=== PATIENT | female | born 1965 | race Caucasian/White ===

== ENCOUNTER 2017-02-18 19:33 | Inpatient (IN) | payer OTHER ==
[~2017-02-18] VITALS: Ht 157.5 cm; Wt 115.2 kg
--- NOTE | ~2017-02-18 | EKG ---
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: paras : 1965 Requested By: Carolyn Meyers Order Number: [id number] MD: Orlin Zeng Measurements Intervals [place] Rate: 100 P: 37 [place]: 192 QRS: -32 QRSD: 96 T: 134 QT: 374 QTc: 483 Interpretive Statements Sinus tachycardia LVH with secondary repolarization abnormality Anterior Q waves, possibly due to LVH Compared to ECG 02/19/2017 10:56:45 Q waves now present Sinus rhythm no longer present Poor R-wave progression no longer present Electronically Signed On 02-26-2017 22:08:20 CDT by Orlin Zeng [email or web address] <ELECTRONICALLY SIGNED> By: Orlin Zeng MD 02/26/17 2208 0616 0616 Orlin Zeng MD /EPI
--- NOTE | ~2017-02-18 | EKG ---
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: HELEN : 1965 Requested By: Denis Sepulveda Order Number: [id number] MD: Alverto Sparks Measurements Intervals [place] Rate: 76 P: 15 [place]: 200 QRS: -24 QRSD: 100 T: 120 QT: 420 QTc: 473 Interpretive Statements Sinus rhythm LVH with secondary repolarization abnormality nonspecific ST segment abnormalities No previous ECG available for comparison Electronically Signed On 02-19-2017 15:45:04 CDT by Alverto Sparks [email or web address] <ELECTRONICALLY SIGNED> By: Alverto Sparks MD 02/19/17 1545 1939 1939 Alverto Sparks MD /CECILIO
--- NOTE | ~2017-02-18 | 2DMMODE ---
[facility] [address] [place] [address] 2 D/M-MODE ECHOCARDIOGRAM Name: WENDYISIDRA TESS Room #: 212-P ADM IN M.R.#: [id number] Admission: 02/18/17 Attend Phys: Dayton Davis Discharge: Date of : 67 Date of Service: 02/20/17 1538 Report #: [id number] THIS REPORT FOR: //name// APPROVED REPORT Study performed: 02/20/2017 14:27:00 EXAM: Comprehensive 2D, Doppler, and color-flow Echocardiogram Patient Location: Bedside Room #: 212 Status: routine Other Information Study Quality: Good/status post heart cath. Indications Chest pain, elevated troponin. Pre-Op CABG. Hx: CHF, COPD, HTN, HLP, DM 2D Dimensions RVDd: 32.63 mm LVEF(%): 51.60 (>50%) IVSd: 13.98 (7-11mm) LVOT Diam: 22.50 (18-24mm) LVDd: 45.48 mm PWd: 13.34 (7-11mm) Ascending Ao: 35.58 (22-36mm) LVDs: 33.53 (25-40mm) Aortic Root: 37.92 mm Cormier's LVEF: 51.60 % Volumes Left Atrial Volume (Systole) Single Plane 4CH: 59.75 mL Single Plane 2CH: 72.51 mL LA ESV Index: 35.00 mL/m2 Aortic Valve AoV Peak Lauro.: 1.51 m/s AO Peak Gr.: 9.15 mmHg LVOT Max P.11 mmHg LVOT Max V: 1.24 m/s ERICH Vmax: 3.25 cm2 Mitral Valve E/A Ratio: 0.8 MV Decel. Time: 304.50 ms MV E Max Lauro.: 0.81 m/s MV A Lauro.: 1.00 m/s MV PHT: 88.30 ms [facility] [place] [address] 2 D/M-MODE ECHOCARDIOGRAM Name: NGUYENISIDRA AMARILLO Room #: 212-P [facility] IN .R.#: [id number] Admission: 02/18/17 Attend Phys: Dayton Davis Discharge: Date of : 67 Date of Service: 02/20/17 1538 Report #: [id number] IVRT: 110.73 ms Pulmonary Valve PV Peak Lauro.: 1.36 m/s PV Peak Gr.: 7.38 mmHg Pulmonary Vein P Vein S: 0.64 m/s P Vein A: 0.30 m/s P Vein D: 0.41 m/s P Vein A Dur.: 110.7 msec P Vein S/D Ratio: 1.56 Tricuspid Valve TR Peak Lauro.: 3.25 m/s RAP Estimate: 5.00 mmHg TR Peak Gr.: 42.15 mmHg PA Pressure: 47.00 mmHg Left Ventricle The left ventricle is normal size. Moderate concentric left ventricular hypertrophy. Left ventricular systolic function is preserved. LVEF is 55%. Mild diastolic dysfunction is present (impaired relaxation pattern). Right Ventricle The right ventricle is normal size. The right ventricular systolic function is normal. Atria Left atrium is mildly dilated. The right atrium size is normal. Aortic Valve The aortic valve is normal in structure. No aortic regurgitation is present. There is no aortic valvular stenosis. Mitral Valve The mitral valve is normal in structure. Mild to moderate mitral regurgitation. Tricuspid Valve The tricuspid valve is normal in structure. There is mild to moderate tricuspid regurgitation. The right atrial pressure is estimated at 5 mmHg. There is moderate pulmonary hypertension with an estimated PAP of 47mmHg. Pulmonic Valve The pulmonary valve is normal in structure. [place] [address] 2 D/M-MODE ECHOCARDIOGRAM Name: ISIDRA NGUYEN AMARILLO Room #: 212-P ADM IN M.R.#: [id number] Admission: 02/18/17 Attend Phys: Dayton Davis Discharge: Date of : 67 Date of Service: 02/20/17 1538 Report #: [id number] Great Vessels Aortic root is mildly dilated at the level of the sinuses measuring 3.9cm The ascending aorta is normal in size. IVC is normal in size and collapses >50% with inspiration. Pericardium Cannot rule out trivial posterior effusion. <Conclusion> Left ventricular systolic function is preserved. LVEF is 55%. Left atrium is mildly dilated. The aortic valve is normal in structure. The mitral valve is normal in structure. Mild to moderate mitral regurgitation. The tricuspid valve is normal in structure. There is mild to moderate tricuspid regurgitation. The right atrial pressure is estimated at 5 mmHg. There is moderate pulmonary hypertension with an estimated PAP of 47mmHg. The pulmonary valve is normal in structure. Trace pulmonic regurgitation. Aortic root is mildly dilated at the level of the sinuses measuring 3.9cm <ELECTRONICALLY SIGNED> By: Austin Randall MD 02/20/17 1538 1538 1538 Austin Randall MD /INF
--- NOTE | ~2017-02-18 | EKG ---
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: miriam : 1965 Requested By: Nohemy Beck Order Number: [id number] MD: Alverto Sparks Measurements Intervals [place] Rate: 65 P: 23 AK: 204 QRS: -21 QRSD: 109 T: 115 QT: 450 QTc: 468 Interpretive Statements Sinus rhythm Borderline prolonged AK interval Poor R-wave progression LVH with secondary repolarization abnormality No previous ECG available for comparison Electronically Signed On 02-19-2017 15:51:58 CDT by Alverto Sparks [email or web address] <ELECTRONICALLY SIGNED> By: Alverto Sparks MD 02/19/17 1551 1056 1056 MD ZAMZAM Hurley
--- NOTE | ~2017-02-18 | CATHLAB ---
[facility] [address] [place] [address] INVASIVE PROCEDURE REPORT Name: ISIDRA NGUYEN TESS Room #: 212-P ADM IN M.R.#: [id number] Admission: 02/18/17 Attend Phys: Dayton Davis Discharge: Date of : 67 Date of Service: 02/20/17 1348 Report #: [id number] THIS REPORT FOR: //name// APPROVED REPORT Patient Details Patient Status: In-Patient Room #: 201 The patient is a 51 year-old female Event Personnel Alverto Sparks Speech Correction Consultant, Estefania Fuentes RN RN, Kole Javed RN, Trevin Parks Aloi, Christine Monitor, Ruiz Trnih RN Security Assessor Procedures Performed Left Heart Cath w/or w/o Coronaries [id number] [facility] Indication Dyspnea, Unstable angina Risk Factors Hypercholesterolemia, Hypertension, Tobacco History (), Dialysis Procedure Narrative The Right Groin^ was infiltrated with 1% Lidocaine subcutaneous anesthesia. A PINNACLE 4FR Sheath #[id number] sheath was inserted into the RFA^. Coronary angiography was performed using coronary diagnostic catheters. The right coronary system was accessed and visualized with a JR4 catheter. The left coronary system was accessed and visualized with a JL4 catheter. The left ventricle was accessed and visualized with a PIGTAIL catheter. Left ventricular/Aortic Valve gradient assessed via catheter pullback. Left ventriculogram was performed in 30 degree projection. Hemostasis was obtained with manual pressure following sheath removal without any complications. The patient tolerated the procedure well and there were no complications associated with the procedure. There was no hematoma. Intraoperative Conscious Sedation Sedation start time: 12:33 Case end Time: 12:43 Fentanyl 25 mcg Versed 1 mg Fluoro Time: 2.10 minutes [facility] [address] [place] [address] INVASIVE PROCEDURE REPORT Name: ISIDRA NGUYEN BOSQUE Room #: 212-P [facility] IN .R.#: [id number] Admission: 02/18/17 Attend Phys: Dayton Davis Discharge: Date of : 67 Date of Service: 02/20/17 1348 Report #: [id number] Dose: DAP 4716.69 cGycm2 637 mGy Contrast Type and Amount: Visipaque 100 ml Coronary Angiography The patient's coronary anatomy is right dominant. Diagnostic Cath Left Main No flow-limiting lesions LAD Severe stenosis in proximal/mid segment, 80% Diagonal 1 Moderate size caliber vessel with a severe, ostial stenosis of 70%. OM2 Severe occlusion, 70% in proximal segment. Right Coronary Dominant vessel with a severe occlusion in mid segment, 95%. R PDA Patent vessel, no flow-limiting lesions. RPLV Patent vessel, no flow limiting lesions. Left Ventriculography The left ventricle is normal in size with normal contractility. The left ventricular ejection fraction is estimated to be 65-70%. Hemodynamics The aortic pressure is 166/87 mmHg with a mean of 86 mmHg. The left ventricular pressure is 168/18 mmHg with a mean of mmHg. The left ventricular end diastolic pressure is 25 mmHg. Conclusion 1. Severe 3 vessel disease. 2. Normal LV systolic function. 3. Recommend CABG. Recommendations Aggressive Medical Therapy CABG <ELECTRONICALLY SIGNED> By: Alverto Sparks MD 02/20/17 1348 1348 1348 Alverto Sparks MD /INF
--- NOTE | ~2017-02-18 | EKG ---
[address] [address] ELECTROCARDIOGRAM REPORT Name: ISIDRA NGUYEN Room #: 212-P ADM IN M.R.#: [id number] Admission: 02/18/17 Attend Phys: Cecil Marcus MD Discharge: Date of : 67 Report #: [id number] THIS REPORT FOR: //name// [facility] Test Date: 2017-02-23 Test Time: 15:16:24 Pat Name: ISIDRA NGUYEN Department: Room: [facility] Gender: F Food Taster: Dayton HENSON : 1965 Requested By: Carolyn Meyers Order Number: [id number] MD: Orlin Zeng Measurements Intervals [place] Rate: 88 P: 55 NM: 201 QRS: -48 QRSD: 128 T: 112 QT: 438 QTc: 530 Interpretive Statements Sinus rhythm Left bundle branch block Compared to ECG 02/19/2017 10:56:45 Left bundle-branch block now present Poor R-wave progression no longer present Left ventricular hypertrophy no longer present Early repolarization no longer present Electronically Signed On 02-26-2017 22:03:49 CDT by Orlin Zeng [email or web address] <ELECTRONICALLY SIGNED> By: Orlin Zeng MD 02/26/17 2203 1516 1516 Orlin Zeng MD /EPI
--- NOTE | ~2017-02-18 | HC ---
[facility] [place] [address] CONSULTATION Name: ISIDRA NGUYEN Room #: 212-P ADM IN M.R.#: [id number] Admission: 02/18/17 Attend Phys: Cecil Marcus MD Discharge: Date of : 67 Report #: [id number] THIS REPORT FOR: //name// CC: TIM physician/PCP Cecil Marcus DATE OF SERVICE: 02/19/2017 INDICATION: Chest pain. HISTORY OF PRESENT ILLNESS: This is a 51-year-old female presenting with complaints of chest discomfort. She is currently residing at [facility] after experiencing a tibia fracture 1-1/2 weeks ago. She developed midsternal chest discomfort, nonradiating. It was associated with shortness of breath. There were no alleviating or aggravating factors. It seem to resolve within 5 minutes in duration. She denies any history of nausea, fever, cough, diarrhea or congestion. She does have significant CAD risk factors including diabetes mellitus, hypertension, hypercholesterolemia, and tobacco use. PAST MEDICAL HISTORY: As above COPD. History of diabetes mellitus, hypertension, hypercholesterolemia. ALLERGIES: PENICILLIN. MEDICATIONS: Include aspirin 81 mg daily, Lipitor 40 mg daily, Coreg 25 mg twice a day, lisinopril 10 mg daily, Protonix 40 mg daily, Spiriva, DuoNeb inhaler, Glucophage, levothyroxine, Symbicort. SOCIAL HISTORY: Smoking a few cigarettes per week. FAMILY HISTORY: Negative for premature CAD. REVIEW OF SYSTEMS: A full 10-point review of systems performed. Only the pertinent positives and negatives are described in the HPI. PHYSICAL EXAMINATION: VITAL SIGNS: Blood pressure is 120/70, heart rate is 76 beats per minute. GENERAL APPEARANCE: This is an overweight female in no acute respiratory distress. HEAD AND EYES: Normocephalic. Sclerae are anicteric. ENT: Oral mucosa moist. NECK: Supple. LUNGS: Clear to auscultation. No wheezing. CARDIAC: Regular rate and rhythm, S1, S2 positive. ABDOMEN: Soft, nontender. Bowel sounds positive. EXTREMITIES: No cyanosis, no edema. [facility] [address] [place] [address] CONSULTATION Name: ISIDRA NGUYEN TESS Room #: 212-P ADM IN M.R.#: [id number] Admission: 02/18/17 Attend Phys: Cecil Marcus MD Discharge: Date of : 67 Report #: [id number] SKIN: Intact, no bruising. NEUROLOGIC: Alert and oriented x 3 ECG reveals sinus rhythm with LVH, LVH with repolarization abnormality, poor R-wave progression. LABORATORY VALUES: Peak troponin is 0.17. White count is 13.0, hemoglobin is 12.2. Sodium is 140, creatinine is 1.0. ASSESSMENT AND PLAN: 1. Chest pain syndrome, the troponin level is in the indeterminate range. Her symptoms are somewhat atypical. However, she does have significant coronary artery disease risk factors. The plan is to proceed with noninvasive stress testing. 2. Hypertension, continue with medications. 3. Hypercholesterolemia, continue with statin therapy, denies any history of myalgias. 4. Diabetes mellitus, as per PCP. 5. Chronic obstructive pulmonary disease, stable, continue with inhalers. 6. Tobacco use, complete smoking cessation is recommended. <ELECTRONICALLY SIGNED> By: Alverto Sparks MD 02/20/17 0732 1052 1222 Alverto Sparks MD /nt
--- NOTE | ~2017-02-18 | PFR/MVV ---
[facility] [place] [address] PULMONARY FUNCTION MVV/REPORT Name: WENDYISIDRAHOLLI PULIDO Room #: 212-P [facility] IN .R.#: [id number] Admission: 02/18/17 Attend Phys: Cecil Marcus MD Discharge: Date of : 67 Report #: [id number] THIS REPORT FOR: //name// >> SPIROMETRY: (BTPS) Height: 62.0 in cm Weight: 156 lbs kg Exam Date: 02/22/17 PRE-RX POST-RX PRED BEST %PRED BEST %PRED %CHG FVC LITERS . 2.93 . 2.72 . 93 . 2.93 . 100 . 8 FEV1 LITERS . 2.44 . 1.82 . 75 . 2.09 . 86 . 15 FEV1/FVC % . 83 . 67 . 80 . 71 . 86 . 7 YDT46-35% L/Sec . 2.76 . 1.02 . 37 . 1.38 . 50 . 35 PEF L/SEC . 5.70 . 4.29 . 75 . 4.75 . 83 . 11 FEF50/FIF50 UNITLESS . . . . . . MVV L/Min . . . f 1/Min . . . >> LUNG VOLUMES: (BTPS) PRE-RX POST-RX PRED AVG %PRED AVG %PRED %CHG VC Liters . . . . . . TLC Liters . . . . . . RV Liters . . . . . . RV/TLC % . . . . . . FRC PL Liters . . . . . . FRC N2 Liters . . . . . . ERV Liters . . . . . . IC Liters . . . . . . >> DIFFUSION: DLCO ml/Min/mmHg . . . . . . DL Gagan ml/Min/mmHg . . . . . . DLCO/VA ml/Min/mmHg . . . . . . VA Liters . . . . . . COMMENTS: COMMENTS: >> RESISTANCE: [facility] [address] [place] [address] PULMONARY FUNCTION MVV/REPORT Name: ISIDRA NGUYEN GUNNISON Room #: 212-P ADM IN .R.#: [id number] Admission: 02/18/17 Attend Phys: Cecil Marcus MD Discharge: Date of : 67 Report #: [id number] PRE-RX PRED AVG %PRED Raw Total cmH20/L/Sec . . . Raw Insp cmH20/L/Sec . . . Raw Exp cmH20/L/Sec . . . Raw cmH20/L/Sec . . . Gaw L/Sec/cmH20 . . . sRaw cmH20 Sec . . . sGaw l/cmH20 Sec . . . Vtq Liters . . . # = OUTSIDE 95% CONFIDENCE INTERVAL CALIBRATION: PRED: 3.00 ACTUAL: EXP 3.01 INSP 3.02 [facility]06 [facility]-05 N-1804-4 >> INTERPRETATION/IMPRESSION: CC: TIM physician/PCP Cecil Marcus Spirometry suggests mild obstruction with improvement of 15% post bronchodilator. By: Alysa Mendez MD /nt
--- NOTE | ~2017-02-18 | HC ---
[facility] [place] [address] CONSULTATION Name: ISIDRA NGUYEN Room #: 150-8 ADM IN M.R.#: [id number] Admission: 02/18/17 Attend Phys: Cecil Marcus MD Discharge: Date of : 67 Report #: [id number] THIS REPORT FOR: //name// CC: TIM physician/PCP Cecil Marcus DATE OF SERVICE: 02/21/2017 HISTORY OF PRESENT ILLNESS: The patient is a 51-year-old female who has a history of diabetes mellitus, hypertension, hyperlipidemia, CHF and COPD, was admitted through the Emergency Department with chest pain and shortness of air. She has been evaluated and is noted to have significant coronary artery disease. The plan is for coronary artery bypass grafting on 02/23/2017. The patient's recent history includes a left tibial fracture 1.5 weeks prior to her admission. She was placed in a calf and is nonweightbearing on that left lower extremity. We are seeing her in rehabilitation medicine consultation. PAST MEDICAL HISTORY: Is as noted above. She has a history of ND x 4, hypertension, CVA, diabetes mellitus, CHF, hyperlipidemia, COPD. ALLERGIES: PENICILLIN CAUSING HIVES. FAMILY HISTORY: Heart disease in her father, apparently had a CABG at age 31. HABITS: Tobacco abuse, current same day smoker. No history of alcohol abuse. SOCIAL HISTORY: Lives in mobile home with her fiance. There are 5 steps to get in. She indicated that they are in the process of building a ramp. He works during the day. Her hope is to return directly home to her mobile home and utilize a wheelchair, which she could get around in the living room. She could utilize a bedside commode. Of note is the fact that the patient was staying at [facility] since the tibial fracture. REVIEW OF SYSTEMS: Did not offer any current complaints of chest pain, shortness of breath or abdominal discomfort. PHYSICAL EXAMINATION: GENERAL: A 51-year-old white female in no obvious distress. VITAL SIGNS: Last recorded temperature is 98.1, pulse 63, respirations 18, blood pressure 98/54. The patient is alert and oriented. HEENT: Appeared to be benign. NEUROLOGIC: Cranial nerves are grossly intact. Facies are symmetric. She has functional range of motion to both upper extremities. Strength is grade 4-4+/5. DTRs are trace to 1. LOWER EXTREMITIES: She has the left leg, which is in a short leg cast. She can wiggle the toes. [facility] [address] [place] [address] CONSULTATION Name: ISIDRA NGUYEN Room #: 150-8 ADM IN [facility].#: [id number] Admission: 02/18/17 Attend Phys: Cecil Marcus MD Discharge: Date of : 67 Report #: [id number] EXTREMITIES: She has functional range of motion of the right lower extremity without focal weakness. Bed mobility is standby assistance. Transfers are currently standby assistance. She is noted to be min assist with toilet transfers. IMPRESSION: A 51-year-old white female with the following problem list: 1. Severe coronary artery disease, scheduled for coronary artery bypass grafting on 02/23/2017. 2. Left tib-fib fracture from a fall 1-1/2 weeks prior to admission. She is nonweightbearing and casted. 3. Chronic obstructive pulmonary disease. 4. Diabetes mellitus. 5. Hypertension. 6. Hyperlipidemia. PLAN: To undergo coronary artery bypass grafting on 02/23/2017. She is currently nonweightbearing on the left lower extremity because of the tib-fib fracture. Postop from her coronary artery bypass grafting she will have sternal precautions. This will further limit her functional mobility. We will probably need to work on sliding board transfers with weight being utilized through that right lower extremity to help propel her. At this point, we will continue to follow along with you regarding her rehab therapy needs. <ELECTRONICALLY SIGNED> By: Trevin Lozano MD 02/23/17 1350 1557 1938 Trevin Lozano MD /nt
--- NOTE | ~2017-02-18 | EKG ---
[address] [address] ELECTROCARDIOGRAM REPORT Name: NGUYENISIDRA Room #: 212-P ADM IN M.R.#: [id number] Admission: 02/18/17 Attend Phys: Cecil Marcus MD Discharge: Date of : 67 Report #: [id number] THIS REPORT FOR: //name// [facility] Test Date: 2017-02-20 Test Time: 11:22:32 Pat Name: ISIDRA NGUYEN Department: Room: [facility] Gender: F Sql Architect: Nelson GALVEZ : 1965 Requested By: Alverto Sparks Order Number: [id number] MD: Orlin Zeng Measurements Intervals [place] Rate: 72 P: 5 TN: 201 QRS: -11 QRSD: 105 T: 138 QT: 407 QTc: 446 Interpretive Statements Sinus rhythm Repol abnrm suggests ischemia, anterolateral Electronically Signed On 02-26-2017 21:30:31 CDT by Orlin Zeng [email or web address] <ELECTRONICALLY SIGNED> By: Orlin Zeng MD 02/26/17 2130 1122 21 Orlin Zeng MD /CECILIO
[2017-02-18 19:33] VITALS: BP 162/99
[~2017-02-18 19:33] MED LIST: NOHOMEMEDICATIONS
[2017-02-18 20:28] LABS: BASOPHILS 0.5 % (0.0-2.0); EOSINOPHILS 6.5 % (0.0-3.0); HEMATOCRIT 36.6 % (37.0-47.0); HEMOGLOBIN 12.2 gm/dL (12.0-15.0); LYMPHOCYTES 21.6 % (24.0-44.0); MCH 30.3 pg (26.0-34.0); MCHC 33.3 g/dL (28.0-37.0); MCV 91.1 fL (80.0-100.0); MONOCYTES 10.3 % (1.0-8.0); PLATELET COUNT 435 thou/uL (150-400); POLYS 61.1 % (36.0-66.0); RBC 4.01 mil/uL (4.20-5.00); RDW 13.1 % (10.5-14.5)
[2017-02-18 20:29] LABS: MANUAL DIFF NO
[2017-02-18 20:36] LABS: CALCIUM 9.4 mg/dL (8.5-10.1); POTASSIUM 4.3 mmol/L (3.5-5.1)
[2017-02-18 20:52] LABS: TROPONIN-I 0.17 ng/mL (<0.04-0.07)
[2017-02-18] MEDS ORDERED: LIPITOR40 MG PO (21:41)
[2017-02-18] MEDS ORDERED: ASPIR 8181 M1 PO (21:41)
[2017-02-18] MEDS ORDERED: LISINOPRIL10 MG PO (21:42)
[2017-02-18] MEDS ORDERED: SPIRIVA INH (21:42)
[2017-02-18] MEDS ORDERED: PROTONIX40 M1 PO (21:42)
[2017-02-18] MEDS ORDERED: COREG25 MG PO (21:42)
[2017-02-18] MEDS ORDERED: LYRICA 75 MG CA75 MG PO (21:43)
[2017-02-18] MEDS ORDERED: OXYCONTIN10 M1 PO (21:44)
[2017-02-18] MEDS ORDERED: DUONEB 2.5-0.5 M3 ML INH (21:45)
[2017-02-18] MEDS ORDERED: VITAMIN D3400 UNIT PO (21:46)
[2017-02-18] MEDS ORDERED: HEPARIN SO5000 UNIT1 IJ (21:46)
[2017-02-18] MEDS ORDERED: CITRUS CALCIUM1 EAC1 PO (21:47)
[2017-02-18] MEDS ORDERED: METFORMIN HCL500 MG PO (21:47)
[2017-02-18] MEDS ORDERED: LEVOTHYROXIN0.088 MG PO (21:49)
[2017-02-18] MEDS ORDERED: SYMBICORT160 MCG/4. INH (21:50)
[2017-02-18] MEDS ORDERED: SENNA8.6 MG PO (21:50)
[2017-02-18] MEDS ORDERED: MIRALAX17 GM PO (21:51)
[2017-02-18] MEDS ORDERED: PROAIR HFA8.5 GM INH (21:53)
[2017-02-18] MEDS ORDERED: TYLENOL325 MG PO (21:54)
[2017-02-18] MEDS ORDERED: PHENERGAN 25 MG25 M1 PO (21:54)
[2017-02-19 04:18] VITALS: BP 107/56
[2017-02-19 07:55] VITALS: BP 130/68
[2017-02-19 11:40] VITALS: BP 125/77
[2017-02-19 15:00] VITALS: BP 125/74
[2017-02-19 19:23] VITALS: BP 113/70
[2017-02-20] VITALS (16 sets, daily range): BP systolic 99–157; BP diastolic 58–93
[2017-02-20 04:41] LABS: ALBUMIN 2.7 g/dL (3.4-5.0); CALCIUM 8.9 mg/dL (8.5-10.1); CREATININE 0.9 mg/dL (0.6-1.0); PHOSPHORUS 4.7 mg/dL (2.5-4.9); POTASSIUM 4.1 mmol/L (3.5-5.1); TROPONIN-I 0.14 ng/mL (<0.04-0.07)
[2017-02-20 17:42] LABS: ABG SAMPLE TYPE ARTERIAL; BE(vivo) -0.7 mmol/L (-2 to +3); HCO3 23.5 mmol/L (22.0-26.0); LACTATE 1.15 mmol/L (0.5-2.0); O2(CT) 15.4 mL/dL (15.0-23.0); O2Hb 92.6 % (92.0-98.0); PCO2 37.3 mmHg (35.0-45.0); PO2 69.1 mmHg (80.0-100.0); STICK SITE R.BRACHIAL; pH 7.417 (7.360-7.450); sO2 94.2 % (92.0-98.0); tCO2 24.6 mmol/L (24.0-30.0)
[2017-02-20 19:01] LABS: URINE BILIRUBIN NEGATIVE (Negative); URINE BLOOD NEGATIVE (Negative); URINE COLOR YELLOW; URINE GLUCOSE-RANDOM* NEGATIVE (Negative); URINE KETONES NEGATIVE (Negative); URINE LEUKOCYTES-REFLEX NEGATIVE (Negative); URINE PROTEIN (DIPSTICK) NEGATIVE (Negative); URINE SPECIFIC GRAVITY 1.015 (1.003-1.035)
[2017-02-21 03:06] LABS: GLYCOHEMOGLOBIN (HGB A1C) 5.6 % (4.8-5.6)
[2017-02-21 04:34] LABS: HEMOGLOBIN 10.9 gm/dL (12.0-15.0); MCH 30.6 pg (26.0-34.0); RBC 3.55 mil/uL (4.20-5.00); RDW 13.3 % (10.5-14.5); WBC 10.2 thou/uL (4.0-11.0)
[2017-02-21 04:44] LABS: CREATININE 0.9 mg/dL (0.6-1.0); POTASSIUM 4.2 mmol/L (3.5-5.1)
[2017-02-21 04:45] VITALS: BP 122/85
[2017-02-21 04:49] LABS: APTT 43.9 Seconds (24.5-32.8); INR 1.1; PROTIME 10.8 Seconds (9.3-11.4)
[2017-02-21 04:51] LABS: ALBUMIN 2.5 g/dL (3.4-5.0); TOTAL BILIRUBIN 0.3 mg/dL (<0.1-1.0); TOTAL PROTEIN 6.3 g/dL (6.4-8.2)
[2017-02-21 08:10] VITALS: BP 135/85
[2017-02-21 11:24] VITALS: BP 98/54
[2017-02-21 15:05] VITALS: BP 106/71
[2017-02-21 19:52] VITALS: BP 136/77
[2017-02-21 20:05] VITALS: BP 136/77
[2017-02-22 04:13] VITALS: BP 113/62
[2017-02-22 07:57] VITALS: BP 132/74
[2017-02-22 11:50] VITALS: BP 118/68
[2017-02-22 15:10] VITALS: BP 140/86
[2017-02-22 19:42] VITALS: BP 115/60
[2017-02-22 23:18] VITALS: BP 133/67
[2017-02-23 03:54] VITALS: BP 161/101
[2017-02-23 06:00] LABS: HEMATOCRIT 33.7 % (37.0-47.0); HEMOGLOBIN 11.1 gm/dL (12.0-15.0); MCH 29.9 pg (26.0-34.0); MCHC 32.8 g/dL (28.0-37.0); MCV 91.2 fL (80.0-100.0); RBC 3.7 mil/uL (4.20-5.00); RDW 13.4 % (10.5-14.5)
[2017-02-23 08:54] VITALS: BP 156/76
[2017-02-23 14:17] LABS: POC BE 2 mmol/L (-2.0 to +3.0); POC CA IONIZED 4.8 mg/dL (4.5-5.3); POC FiO2 100 %; POC GLUCOSE 100 mg/dL (70-99); POC HCO3 26.8 mmol/L (22.0-26.0); POC HEMOGLOBIN 9.9 g/dL (12.0-15.0); POC SODIUM 141 mmol/L (136-145); POC pCO2 44.8 mmHg (35.0-45.0); POC pH 7.386 (7.360-7.450)
[2017-02-23 14:17] LABS: POC BE 2 mmol/L (-2.0 to +3.0); POC CA IONIZED 4.4 mg/dL (4.5-5.3); POC FiO2 100 %; POC GLUCOSE 137 mg/dL (70-99); POC HCO3 27.1 mmol/L (22.0-26.0); POC HEMOGLOBIN 8.2 g/dL (12.0-15.0); POC POTASSIUM 4.6 mmol/L (3.5-5.1); POC SODIUM 138 mmol/L (136-145); POC pCO2 47.8 mmHg (35.0-45.0); POC pH 7.362 (7.360-7.450)
[2017-02-23 14:17] LABS: POC BE 0 mmol/L (-2.0 to +3.0); POC CA IONIZED 4.6 mg/dL (4.5-5.3); POC FiO2 80 %; POC GLUCOSE 161 mg/dL (70-99); POC HCO3 24.5 mmol/L (22.0-26.0); POC HEMOGLOBIN 7.8 g/dL (12.0-15.0); POC POTASSIUM 4.2 mmol/L (3.5-5.1); POC SODIUM 139 mmol/L (136-145); POC pCO2 37.8 mmHg (35.0-45.0); POC pH 7.419 (7.360-7.450)
[2017-02-23 14:17] LABS: POC BE 0 mmol/L (-2.0 to +3.0); POC CA IONIZED 4.7 mg/dL (4.5-5.3); POC FiO2 100 %; POC GLUCOSE 146 mg/dL (70-99); POC HCO3 25.6 mmol/L (22.0-26.0); POC HEMOGLOBIN 7.8 g/dL (12.0-15.0); POC POTASSIUM 4.6 mmol/L (3.5-5.1); POC SODIUM 141 mmol/L (136-145); POC pCO2 43.9 mmHg (35.0-45.0); POC pH 7.374 (7.360-7.450)
[2017-02-23 14:17] LABS: POC BE 1 mmol/L (-2.0 to +3.0); POC CA IONIZED 4.7 mg/dL (4.5-5.3); POC FiO2 80 %; POC GLUCOSE 154 mg/dL (70-99); POC HCO3 26.8 mmol/L (22.0-26.0); POC HEMOGLOBIN 8.2 g/dL (12.0-15.0); POC POTASSIUM 4.5 mmol/L (3.5-5.1); POC SODIUM 139 mmol/L (136-145); POC pCO2 50.4 mmHg (35.0-45.0); POC pH 7.334 (7.360-7.450)
[2017-02-23 14:17] LABS: POC BE 0 mmol/L (-2.0 to +3.0); POC CA IONIZED 4.9 mg/dL (4.5-5.3); POC FiO2 100 %; POC GLUCOSE 115 mg/dL (70-99); POC HCO3 25.5 mmol/L (22.0-26.0); POC HEMOGLOBIN 10.2 g/dL (12.0-15.0); POC SODIUM 140 mmol/L (136-145); POC pCO2 45.9 mmHg (35.0-45.0); POC pH 7.353 (7.360-7.450)
[2017-02-23 14:17] LABS: POC BE -1 mmol/L (-2.0 to +3.0); POC CA IONIZED 4.9 mg/dL (4.5-5.3); POC FiO2 100 %; POC GLUCOSE 106 mg/dL (70-99); POC HCO3 25.4 mmol/L (22.0-26.0); POC HEMOGLOBIN 9.9 g/dL (12.0-15.0); POC POTASSIUM 3.9 mmol/L (3.5-5.1); POC SODIUM 141 mmol/L (136-145); POC pCO2 48.3 mmHg (35.0-45.0); POC pH 7.329 (7.360-7.450)
[2017-02-23 14:17] LABS: POC BE -4 mmol/L (-2.0 to +3.0); POC CA IONIZED 5.8 mg/dL (4.5-5.3); POC FiO2 100 %; POC GLUCOSE 116 mg/dL (70-99); POC HCO3 21.8 mmol/L (22.0-26.0); POC HEMOGLOBIN 7.5 g/dL (12.0-15.0); POC POTASSIUM 4.1 mmol/L (3.5-5.1); POC SODIUM 141 mmol/L (136-145); POC pCO2 39.4 mmHg (35.0-45.0)
[2017-02-23 14:17] LABS: POC BE -3 mmol/L (-2.0 to +3.0); POC CA IONIZED 4.6 mg/dL (4.5-5.3); POC FiO2 100 %; POC GLUCOSE 135 mg/dL (70-99); POC HCO3 23.4 mmol/L (22.0-26.0); POC HEMOGLOBIN 8.8 g/dL (12.0-15.0); POC POTASSIUM 4.4 mmol/L (3.5-5.1); POC SODIUM 138 mmol/L (136-145); POC pH 7.315 (7.360-7.450)
[2017-02-23 14:56] LABS: HEMATOCRIT 28.2 % (37.0-47.0); HEMOGLOBIN 9.4 gm/dL (12.0-15.0); MCH 30.3 pg (26.0-34.0); MCHC 33.2 g/dL (28.0-37.0); MCV 91.2 fL (80.0-100.0); RBC 3.1 mil/uL (4.20-5.00)
[2017-02-23 15:06] LABS: CALCIUM 9.1 mg/dL (8.5-10.1); CREATININE 0.8 mg/dL (0.6-1.0); POTASSIUM 4.2 mmol/L (3.5-5.1)
[2017-02-23 15:14] LABS: ABG SAMPLE TYPE ARTERIAL; BE(vivo) -1.4 mmol/L (-2 to +3); LACTATE 1.31 mmol/L (0.5-2.0); O2(CT) 13.2 mL/dL (15.0-23.0); O2Hb 91.3 % (92.0-98.0); PCO2 37.6 mmHg (35.0-45.0); PO2 65.9 mmHg (80.0-100.0); pH 7.405 (7.360-7.450); sO2 93.2 % (92.0-98.0); tCO2 24.2 mmol/L (24.0-30.0)
[2017-02-23 15:15] LABS: STICK SITE LINE; TIDAL VOLUME 600 ml
[2017-02-23 17:16] LABS: ABG SAMPLE TYPE ARTERIAL; BE(vivo) -2.9 mmol/L (-2 to +3); HCO3 20.9 mmol/L (22.0-26.0); LACTATE 0.98 mmol/L (0.5-2.0); O2(CT) 13.6 mL/dL (15.0-23.0); O2Hb 95.6 % (92.0-98.0); PCO2 32.3 mmHg (35.0-45.0); PO2 95.8 mmHg (80.0-100.0); Pressure Support 6 cm H20; STICK SITE LINE; pH 7.428 (7.360-7.450); sO2 97.5 % (92.0-98.0); tCO2 21.9 mmol/L (24.0-30.0)
[2017-02-23 18:54] LABS: ABG SAMPLE TYPE ARTERIAL; BE(vivo) -1.7 mmol/L (-2 to +3); HCO3 22.6 mmol/L (22.0-26.0); O2(CT) 13.7 mL/dL (15.0-23.0); O2Hb 95.4 % (92.0-98.0); PCO2 36.5 mmHg (35.0-45.0); PO2 82.3 mmHg (80.0-100.0); sO2 96.3 % (92.0-98.0); tCO2 23.7 mmol/L (24.0-30.0)
[2017-02-23 18:55] LABS: ABG COMMENT POST EXTUBATION; Face Shield 60 %; STICK SITE LINE
[2017-02-24] VITALS (10 sets, daily range): BP systolic 94–145; BP diastolic 67–91
[2017-02-24 04:29] LABS: HEMATOCRIT 26.7 % (37.0-47.0); HEMOGLOBIN 8.9 gm/dL (12.0-15.0); MCH 30.3 pg (26.0-34.0); MCHC 33.5 g/dL (28.0-37.0); MCV 90.5 fL (80.0-100.0); RBC 2.95 mil/uL (4.20-5.00)
[2017-02-24 04:33] LABS: CALCIUM 8.7 mg/dL (8.5-10.1); CREATININE 0.7 mg/dL (0.6-1.0); MAGNESIUM 2.1 mg/dL (1.8-2.4); POTASSIUM 4.2 mmol/L (3.5-5.1)
[2017-02-24 04:37] LABS: WBC 18.7 thou/uL (4.0-11.0)
[2017-02-25 03:51] VITALS: BP 117/78
[2017-02-25 07:33] VITALS: BP 99/67
[2017-02-25 11:02] LABS: INR 1.1; PROTIME 11.5 Seconds (9.3-11.4)
[2017-02-25 11:41] VITALS: BP 99/74
[2017-02-25 15:40] VITALS: BP 100/68
[2017-02-25 19:02] VITALS: BP 87/52
[2017-02-26 04:18] VITALS: BP 86/42
[2017-02-26 05:16] LABS: MCH 30.7 pg (26.0-34.0); MCHC 33.3 g/dL (28.0-37.0); MCV 92.1 fL (80.0-100.0); PLATELET COUNT 232 thou/uL (150-400); RBC 2.28 mil/uL (4.20-5.00); RDW 13.6 % (10.5-14.5); WBC 22.5 thou/uL (4.0-11.0)
[2017-02-26 05:17] LABS: MANUAL DIFF YES
[2017-02-26 05:28] LABS: INR 1.3
[2017-02-26 05:30] LABS: ALBUMIN 2.2 g/dL (3.4-5.0); CALCIUM 8.2 mg/dL (8.5-10.1); CREATININE 1.2 mg/dL (0.6-1.0); MAGNESIUM 2.1 mg/dL (1.8-2.4); POTASSIUM 4.2 mmol/L (3.5-5.1); TOTAL BILIRUBIN 0.4 mg/dL (<0.1-1.0); TOTAL PROTEIN 6.2 g/dL (6.4-8.2)
[2017-02-26 07:45] VITALS: BP 83/51
[2017-02-26 08:04] LABS: ABSOLUTE NEUTROPHILS 18.5 thou/uL (1.4-8.2); NUCLEATED RBCS 1 /100WBC; TOTAL CELL COUNT 100
[2017-02-26 08:05] LABS: ANISOCYTOSIS 1+; POLYCHROMASIA OCCASIONAL
[2017-02-26 12:35] LABS: URINE BILIRUBIN NEGATIVE (Negative); URINE BLOOD NEGATIVE (Negative); URINE COLOR YELLOW; URINE GLUCOSE-RANDOM* NEGATIVE (Negative); URINE KETONES NEGATIVE (Negative); URINE LEUKOCYTES-REFLEX NEGATIVE (Negative); URINE PROTEIN (DIPSTICK) 1+ (Negative)
[2017-02-26 12:45] VITALS: BP 96/59
[2017-02-26 13:08] LABS: CASTS None Seen /LPF (None Seen); SQUAMOUS 0-3 Few /LPF (0-3)
[2017-02-26 13:09] LABS: CRYSTALS None Seen /LPF (None Seen); URINE RBC 0-2 Rare /HPF (0-2); URINE WBC-REFLEX 0-5 Rare /HPF (0-5)
[2017-02-26 15:05] VITALS: BP 79/53
[2017-02-26 16:21] VITALS: BP 94/63
[2017-02-26 20:08] VITALS: BP 107/72
[2017-02-27] VITALS (7 sets, daily range): BP systolic 91–141; BP diastolic 56–87
[2017-02-27 12:52] LABS: WBC 20.3 thou/uL (4.0-11.0)
[2017-02-27 12:53] LABS: MCH 30.2 pg (26.0-34.0); MCHC 32.9 g/dL (28.0-37.0); MCV 91.9 fL (80.0-100.0); RBC 2.16 mil/uL (4.20-5.00); RDW 13.6 % (10.5-14.5)
[2017-02-27 12:56] LABS: HEMATOCRIT 19.9 % (37.0-47.0); HEMOGLOBIN 6.5 gm/dL (12.0-15.0)
[2017-02-27 13:05] LABS: PROTIME 24.8 Seconds (9.3-11.4)
[2017-02-27 13:06] LABS: INR 2.5
[2017-02-27 13:11] LABS: ALBUMIN 2.2 g/dL (3.4-5.0); CALCIUM 8.6 mg/dL (8.5-10.1); CREATININE 0.8 mg/dL (0.6-1.0); PHOSPHORUS 3.2 mg/dL (2.5-4.9)
[2017-02-27 13:13] LABS: TROPONIN-I 28.64 ng/mL (<0.04-0.07)
[2017-02-28 05:09] VITALS: BP 150/104
[2017-02-28 05:33] LABS: HEMATOCRIT 26.5 % (37.0-47.0); HEMOGLOBIN 8.8 gm/dL (12.0-15.0); MCH 29.1 pg (26.0-34.0); MCHC 33.1 g/dL (28.0-37.0); RBC 3.01 mil/uL (4.20-5.00); RDW 15.1 % (10.5-14.5); WBC 16.4 thou/uL (4.0-11.0)
[2017-02-28 05:40] LABS: CALCIUM 8.7 mg/dL (8.5-10.1); CREATININE 0.7 mg/dL (0.6-1.0); POTASSIUM 3.8 mmol/L (3.5-5.1)
[2017-02-28 05:45] LABS: INR 3.2; PROTIME 31.9 Seconds (9.3-11.4)
[2017-02-28 07:37] VITALS: BP 152/94
[2017-02-28] MEDS ORDERED: FENTANYL PA25 MCG/HR TRANSDERM (08:45)
[2017-02-28] MEDS ORDERED: ASPIRIN325 PO (08:45)
[2017-02-28] MEDS ORDERED: LYRICA 75 MG CA75 MG PO (08:46)
[2017-02-28] MEDS ORDERED: PERCOCET PO (08:46)
[2017-02-28] MEDS ORDERED: PAROXETINE ER12.5 M1 PO (08:46)
[2017-02-28] MEDS ORDERED: GABAPENTIN 100100 MG PO (08:46)
[2017-02-28] MEDS ORDERED: GLUCOPHAGE1000 MG PO (08:47)
[2017-02-28] MEDS ORDERED: HUMALOG100 UNIT/1 SUBQ (08:47)
[2017-02-28] MEDS ORDERED: COUMADIN 3 MG TA3 M1 PO (08:48)
[2017-02-28] MEDS ORDERED: LYRICA 50 MG50 MG PO (17:28)
== END 2017-02-28 12:15 | DRG 234 ==
LOC: ER 19:33 → EROBS 22:05 → 2N 22:05 → TBA 02-23 07:24 → ICU 02-23 14:15 → 2N 02-24 16:14
PROVIDERS: Emergency Medicine; Family Medicine; Hospitalist; Internal Medicine Cardiovascular Disease; Nurse Practitioner; Nurse Practitioner Acute Care; Thoracic Surgery (Cardiothoracic Vascular Surgery)
DX: I21.4 Non-ST elevation (NSTEMI) myocardial infarction (principal); J98.11 Atelectasis; S82.202A Unspecified fracture of shaft of left tibia, initial encounter for closed fracture; Z68.42 Body mass index [BMI] 45.0-49.9, adult; I25.110 Atherosclerotic heart disease of native coronary artery with unstable angina pectoris; E78.00 Pure hypercholesterolemia, unspecified; E11.69 Type 2 diabetes mellitus with other specified complication; B18.2 Chronic viral hepatitis C; J44.9 Chronic obstructive pulmonary disease, unspecified; D64.9 Anemia, unspecified; F41.9 Anxiety disorder, unspecified; F17.210 Nicotine dependence, cigarettes, uncomplicated; I11.0 Hypertensive heart disease with heart failure; I50.9 Heart failure, unspecified; E78.5 Hyperlipidemia, unspecified; D72.829 Elevated white blood cell count, unspecified; E03.9 Hypothyroidism, unspecified; E66.9 Obesity, unspecified; W18.39XA Other fall on same level, initial encounter; Z79.899 Other long term (current) drug therapy; Z79.4 Long term (current) use of insulin; Z88.0 Allergy status to penicillin; Z71.6 Tobacco abuse counseling; I25.2 Old myocardial infarction; Z86.73 Personal history of transient ischemic attack (TIA), and cerebral infarction without residual deficits; Z82.49 Family history of ischemic heart disease and other diseases of the circulatory system; Y93.89 Activity, other specified; Y92.89 Other specified places as the place of occurrence of the external cause; Y99.8 Other external cause status
CPT/HCPCS: 10078; 10081; 27001; 47000; 47001; 47002; 47297; 48888; 50249; 50409; 50456; 50497; 50668; 51301; 52131; 53327; 53358; 54118; 55415; 56524; 56525; 56526; 56527; 56528; 56531; 56534; 56639; 56660; 56668; 56760; 56898; 57093; 62110; 62950; 64029; 65002; 65003; 65020; 65043; 65090; 65120

== ENCOUNTER 2017-02-28 12:45 | Inpatient (IN) | payer OTHER | END 2017-03-10 17:05 | disposition home health service (06) | DRG 948 | PROC: 02HV33Z Insertion of Infusion Device into Superior Vena Cava, Percutaneous Approach (ICD-10-PCS; principal; 2017-03-05) | DX: R53.81 Other malaise (principal); G31.84 Mild cognitive impairment of uncertain or unknown etiology; F43.22 Adjustment disorder with anxiety; E11.9 Type 2 diabetes mellitus without complications; E78.5 Hyperlipidemia, unspecified; I50.9 Heart failure, unspecified; J44.9 Chronic obstructive pulmonary disease, unspecified; I11.0 Hypertensive heart disease with heart failure; F17.210 Nicotine dependence, cigarettes, uncomplicated; I25.10 Atherosclerotic heart disease of native coronary artery without angina pectoris; E83.42 Hypomagnesemia; Z95.1 Presence of aortocoronary bypass graft; I25.2 Old myocardial infarction; Z86.73 Personal history of transient ischemic attack (TIA), and cerebral infarction without residual deficits; Z88.0 Allergy status to penicillin; Z82.49 Family history of ischemic heart disease and other diseases of the circulatory system; Z87.81 Personal history of (healed) traumatic fracture; Z91.81 History of falling ==

== ENCOUNTER 2017-03-15 12:39 | Emergency (ER) | payer OTHER ==
[~2017-03-15] VITALS: Ht 157.5 cm; Wt 103.9 kg
--- NOTE | ~2017-03-15 | EKG ---
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: CWEISHRAVAN : 1965 Requested By: Nick Tavarez Order Number: [id number] MD: Antony Arteaga Measurements Intervals [place] Rate: 82 P: 23 [place]: 189 QRS: -34 QRSD: 98 T: 139 QT: 432 QTc: 505 Interpretive Statements Sinus rhythm Abnormal R-wave progression, late transition LVH with secondary repolarization abnormality Borderline prolonged QT interval Compared to ECG 02/24/2017 06:16:31 Sinus tachycardia no longer present Electronically Signed On 03-16-2017 7:56:04 CDT by Antony Arteaga [email or web address] <ELECTRONICALLY SIGNED> By: Antony Arteaga MD, [facility] 03/16/17 0756 1248 1248 Antony Arteaga MD, [facility] /EPI
[~2017-03-15 12:39] MED LIST changes: +ASPIR 8181 M1 PO; +ASPIRIN325 PO; +CITRUS CALCIUM1 EAC1 PO; +COREG25 MG PO; +COUMADIN 3 MG TA3 M1 PO; +DUONEB 2.5-0.5 M3 ML INH; +FENTANYL PA25 MCG/HR TRANSDERM; +GABAPENTIN 100100 MG PO; +GLUCOPHAGE1000 MG PO; +HEPARIN SO5000 UNIT1 IJ; +HUMALOG100 UNIT/1 SUBQ; +LEVOTHYROXIN0.088 MG PO; +LIPITOR40 MG PO; +LISINOPRIL10 MG PO; +LYRICA 50 MG50 MG PO; +LYRICA 75 MG CA75 MG PO; +METFORMIN HCL500 MG PO; +METOPROLOL SUCC50 MG PO; +MIRALAX17 GM PO; +OXYCONTIN10 M1 PO; +PAROXETINE ER12.5 M1 PO; +PAROXETINE ER12.5 MG PO; +PERCOCET PO; +PHENERGAN 25 MG25 M1 PO; +PRINIVIL5 MG PO; +PROAIR HFA8.5 GM INH; +PROTONIX40 M1 PO; +SENNA8.6 MG PO; +SPIRIVA INH; +SYMBICORT160 MCG/4. INH; +TYLENOL325 MG PO; +VITAMIN D3400 UNIT PO
[2017-03-15 13:36] LABS: ABSOLUTE NEUTROPHILS 5.8 thou/uL (1.4-8.2); BASOPHILS 2.1 % (0.0-2.0); EOSINOPHILS 4.1 % (0.0-3.0); HEMOGLOBIN 11.5 gm/dL (12.0-15.0); LYMPHOCYTES 18.2 % (24.0-44.0); MCH 29.1 pg (26.0-34.0); MCHC 32.8 g/dL (28.0-37.0); MCV 88.6 fL (80.0-100.0); MONOCYTES 7.7 % (1.0-8.0); PLATELET COUNT 600 thou/uL (150-400); POLYS 67.9 % (36.0-66.0); RBC 3.95 mil/uL (4.20-5.00); WBC 8.6 thou/uL (4.0-11.0)
[2017-03-15 13:37] LABS: MANUAL DIFF NO
[2017-03-15 13:48] LABS: CALCIUM 9.5 mg/dL (8.5-10.1); CREATININE 0.7 mg/dL (0.6-1.0)
[2017-03-15 13:51] LABS: APTT 38.4 Seconds (24.5-32.8); INR 2.2; PROTIME 21.8 Seconds (9.3-11.4)
[2017-03-15 13:57] LABS: ALBUMIN 3.3 g/dL (3.4-5.0); MAGNESIUM 1.5 mg/dL (1.8-2.4); TOTAL BILIRUBIN 0.5 mg/dL (<0.1-1.0); TOTAL PROTEIN 7.8 g/dL (6.4-8.2)
[2017-03-15 14:01] LABS: TROPONIN-I 0.63 ng/mL (<0.04-0.07)
[2017-03-15] MEDS ORDERED: PERCOCET 5-3251 EACH PO (14:15)
== END 2017-03-15 14:54 | disposition home or self-care (01) ==
LOC: ER 12:39
PROVIDERS: Emergency Medicine
DX: G89.18 Other acute postprocedural pain (principal); R07.89 Other chest pain; Z76.0 Encounter for issue of repeat prescription; I25.2 Old myocardial infarction; I11.0 Hypertensive heart disease with heart failure; I50.9 Heart failure, unspecified; E11.9 Type 2 diabetes mellitus without complications; E78.5 Hyperlipidemia, unspecified; J44.9 Chronic obstructive pulmonary disease, unspecified; E78.00 Pure hypercholesterolemia, unspecified; F17.210 Nicotine dependence, cigarettes, uncomplicated; Z95.5 Presence of coronary angioplasty implant and graft; Z86.73 Personal history of transient ischemic attack (TIA), and cerebral infarction without residual deficits; Z86.19 Personal history of other infectious and parasitic diseases; Z90.711 Acquired absence of uterus with remaining cervical stump; Z88.0 Allergy status to penicillin

== ENCOUNTER 2017-03-18 17:14 | Emergency (ER) | payer OTHER ==
[~2017-03-18] VITALS: Ht 157.5 cm; Wt 103.9 kg
--- NOTE | ~2017-03-18 | EKG ---
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: STEFFANY : 1965 Requested By: Denis Sepulveda Order Number: [id number] MD: Antony Arteaga Measurements Intervals [place] Rate: 82 P: 14 WI: 195 QRS: -29 QRSD: 98 T: 140 QT: 415 QTc: 485 Interpretive Statements Sinus rhythm LVH with secondary repolarization abnormality Anterior Q waves, possibly due to LVH Compared to ECG 03/15/2017 12:48:49 No significant change was found Electronically Signed On 03-20-2017 13:38:18 CDT by Antony Arteaga [email or web address] <ELECTRONICALLY SIGNED> By: Antony Arteaga MD, [facility] 03/20/17 1338 1739 1739 Antony Arteaga MD, [facility] /EPI
[~2017-03-18 17:14] MED LIST changes: +PERCOCET 5-3251 EACH PO
[2017-03-18 18:51] LABS: ABSOLUTE NEUTROPHILS 4.4 thou/uL (1.4-8.2); BASOPHILS 0.5 % (0.0-2.0); EOSINOPHILS 15.5 % (0.0-3.0); HEMATOCRIT 37.1 % (37.0-47.0); HEMOGLOBIN 12.4 gm/dL (12.0-15.0); LYMPHOCYTES 24.3 % (24.0-44.0); MCH 29.5 pg (26.0-34.0); MCHC 33.4 g/dL (28.0-37.0); MCV 88.2 fL (80.0-100.0); MONOCYTES 9.3 % (1.0-8.0); PLATELET COUNT 454 thou/uL (150-400); POLYS 50.4 % (36.0-66.0); RDW 15.8 % (10.5-14.5); WBC 8.8 thou/uL (4.0-11.0)
[2017-03-18 18:53] LABS: MANUAL DIFF NO
[2017-03-18 18:59] LABS: CALCIUM 9.6 mg/dL (8.5-10.1); CREATININE 0.9 mg/dL (0.6-1.0); POTASSIUM 3.5 mmol/L (3.5-5.1)
[2017-03-18 19:05] LABS: INR 1.4; PROTIME 14.7 Seconds (9.3-11.4)
[2017-03-18 19:08] LABS: TROPONIN-I 0.6 ng/mL (<0.04-0.07)
[2017-03-18] MEDS ORDERED: COUMADIN 1MG TAB1 M1 PO (19:22)
[2017-03-18] MEDS ORDERED: NORCO 5-325 TA1 EACH PO (19:22)
== END 2017-03-18 19:36 | disposition home or self-care (01) ==
LOC: ER 17:14
PROVIDERS: Emergency Medicine
DX: R07.89 Other chest pain (principal); I11.0 Hypertensive heart disease with heart failure; I50.9 Heart failure, unspecified; I25.2 Old myocardial infarction; E11.9 Type 2 diabetes mellitus without complications; E78.00 Pure hypercholesterolemia, unspecified; J44.9 Chronic obstructive pulmonary disease, unspecified; F17.210 Nicotine dependence, cigarettes, uncomplicated; F12.10 Cannabis abuse, uncomplicated; Z95.1 Presence of aortocoronary bypass graft; Z86.73 Personal history of transient ischemic attack (TIA), and cerebral infarction without residual deficits; Z90.711 Acquired absence of uterus with remaining cervical stump; Z98.890 Other specified postprocedural states; Z79.4 Long term (current) use of insulin; Z79.82 Long term (current) use of aspirin; Z88.0 Allergy status to penicillin

== ENCOUNTER → 2017-03-21 | Outpatient (CLI) | payer OTHER ==
[~2017-03-21] MED LIST changes: +ASPIR 8181 MG PO; +CLOPIDOGREL75 MG PO; +COUMADIN 1MG TAB1 M1 PO; +LISINOPRIL20 MG PO; +NORCO 5-325 TA1 EACH PO; +NORVASC5 MG PO; +PAXIL10 MG PO; +TOPROL XL100 MG PO; +VALIUM5 MG PO
== END ==
LOC: SEN 13:23
DX: I11.0 Hypertensive heart disease with heart failure (principal); I50.9 Heart failure, unspecified; E11.9 Type 2 diabetes mellitus without complications; E78.5 Hyperlipidemia, unspecified; J44.9 Chronic obstructive pulmonary disease, unspecified

== ENCOUNTER → 2017-03-21 | Outpatient (CLI) | payer OTHER ==
[~2017-03-21] MED LIST changes: -ASPIR 8181 MG PO; -CLOPIDOGREL75 MG PO; -LISINOPRIL20 MG PO; -NORVASC5 MG PO; -PAXIL10 MG PO; -TOPROL XL100 MG PO; -VALIUM5 MG PO
== END ==
LOC: RAD 12:22
DX: J90 Pleural effusion, not elsewhere classified (principal); J98.11 Atelectasis; Z98.890 Other specified postprocedural states

== ENCOUNTER 2017-05-27 13:53 | Emergency (ER) | payer OTHER ==
[~2017-05-27] VITALS: Ht 157.5 cm; Wt 95.7 kg
--- NOTE | ~2017-05-27 | EKG ---
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
[2017-05-27] MEDS ORDERED: LISINOPRIL20 MG PO (14:07)
[2017-05-27] MEDS ORDERED: PAXIL10 MG PO (14:07)
[2017-05-27] MEDS ORDERED: ASPIR 8181 MG PO (14:08)
[2017-05-27 15:23] LABS: HEMATOCRIT 43.8 % (37.0-47.0); HEMOGLOBIN 14.1 gm/dL (12.0-15.0); MCH 28.3 pg (26.0-34.0); MCHC 32.3 g/dL (28.0-37.0); MCV 87.7 fL (80.0-100.0); PLATELET COUNT 306 thou/uL (150-400); RBC 4.99 mil/uL (4.20-5.00); RDW 14.8 % (10.5-14.5); WBC 20.6 thou/uL (4.0-11.0)
[2017-05-27 15:24] LABS: MANUAL DIFF YES
[2017-05-27 15:30] LABS: CREATININE 0.7 mg/dL (0.6-1.0)
[2017-05-27 15:39] LABS: TROPONIN-I 0.29 ng/mL (<0.06)
[2017-05-27 15:44] LABS: LARGE PLATELETS FEW; TOTAL CELL COUNT 100
[2017-05-27] MEDS ORDERED: NORVASC5 MG PO (18:05)
[2017-05-27] MEDS ORDERED: GABAPENTIN 100100 MG PO (18:05)
[2017-05-27] MEDS ORDERED: VALIUM5 MG PO (18:05)
[2017-05-30] MEDS ORDERED: TOPROL XL100 MG PO (09:35)
[2017-05-30] MEDS ORDERED: CLOPIDOGREL75 MG PO (09:35)
== END 2017-05-27 18:21 | disposition home or self-care (01) ==
LOC: ER 13:53
PROVIDERS: Emergency Medicine
DX: M54.12 Radiculopathy, cervical region (principal); R79.89 Other specified abnormal findings of blood chemistry; D72.829 Elevated white blood cell count, unspecified; I11.0 Hypertensive heart disease with heart failure; I50.9 Heart failure, unspecified; E11.9 Type 2 diabetes mellitus without complications; J44.9 Chronic obstructive pulmonary disease, unspecified; E78.00 Pure hypercholesterolemia, unspecified; F17.210 Nicotine dependence, cigarettes, uncomplicated; Z90.711 Acquired absence of uterus with remaining cervical stump; Z86.73 Personal history of transient ischemic attack (TIA), and cerebral infarction without residual deficits; Z88.0 Allergy status to penicillin; Z88.8 Allergy status to other drugs, medicaments and biological substances

== ENCOUNTER → 2017-06-06 | Outpatient (CLI) | payer OTHER ==
[~2017-06-06] MED LIST changes: +ASPIR 8181 MG PO; +CLOPIDOGREL75 MG PO; +LISINOPRIL20 MG PO; +NORVASC5 MG PO; +PAXIL10 MG PO; +TOPROL XL100 MG PO; +VALIUM5 MG PO
== END ==
LOC: SEN 11:03
DX: I10 Essential (primary) hypertension (principal); I25.10 Atherosclerotic heart disease of native coronary artery without angina pectoris; E11.40 Type 2 diabetes mellitus with diabetic neuropathy, unspecified; E03.9 Hypothyroidism, unspecified

== ENCOUNTER → 2017-07-13 | Outpatient (CLI) | payer OTHER ==
[~2017-07-13] MED LIST changes: +ACCUNEB SO1.25 MG/1 INH; +HYDROCODONE-AP1 EAC6 PO; +IMDUR 30 MG TAB30 M1 PO; +KEFLEX500 M1 PO; +KEPPRA 500 MG500 M1 PO; +LASIX 40 MG TAB40 M2 PO; +LEVAQUIN 500 M500 M2 PO; +OMEPRAZOLE 20 M20 M1 PO; +PREDNISONE 20 M20 MG PO; +RANEXA500 MG PO; +TRAMADOL 50 MG50 MG PO; +ZOFRAN ODT8 MG PO
[2017-07-13 15:13] LABS: ABSOLUTE NEUTROPHILS 7.2 thou/uL (1.4-8.2); BASOPHILS 1.4 % (0.0-2.0); EOSINOPHILS 3.7 % (0.0-3.0); HEMATOCRIT 40.4 % (37.0-47.0); HEMOGLOBIN 13.6 gm/dL (12.0-15.0); LYMPHOCYTES 24.5 % (24.0-44.0); MCH 28.7 pg (26.0-34.0); MCHC 33.8 g/dL (28.0-37.0); MCV 84.9 fL (80.0-100.0); MONOCYTES 8.2 % (1.0-8.0); PLATELET COUNT 320 thou/uL (150-400); POLYS 62.2 % (36.0-66.0); RBC 4.76 mil/uL (4.20-5.00); RDW 15.2 % (10.5-14.5); WBC 11.6 thou/uL (4.0-11.0)
[2017-07-13 15:28] LABS: ALBUMIN 3.3 g/dL (3.4-5.0); ANION GAP 10 mmol/L (7-16); BUN 18 mg/dL (7-18); CALCIUM 8.9 mg/dL (8.5-10.1); CHLORIDE 105 mmol/L (98-107); CHOLESTEROL 151 mg/dL (<200); CO2 25 mmol/L (21-32); GLUCOSE 127 mg/dL (74-106); HDL CHOLESTEROL 65 mg/dL (>40); LDL CHOLESTEROL 50 mg/dL (<100); POTASSIUM 3.6 mmol/L (3.5-5.1); SGOT 19 U/L (15-37); SGPT 28 U/L (30-65); SODIUM 140 mmol/L (136-145); TC:HDL 2.3 Ratio (Not establshd); TOTAL BILIRUBIN 0.2 mg/dL (<0.1-1.0); TOTAL PROTEIN 7.4 g/dL (6.4-8.2); TRIGLYCERIDE 183 mg/dL (<150); VLDL 37 mg/dL (<40)
[2017-07-14 05:07] LABS: GLYCOHEMOGLOBIN (HGB A1C) 5.9 % (4.8-5.6)
== END ==
LOC: SEN 13:08
PROVIDERS: Emergency Medicine
DX: I25.10 Atherosclerotic heart disease of native coronary artery without angina pectoris (principal); I10 Essential (primary) hypertension; E13.40 Other specified diabetes mellitus with diabetic neuropathy, unspecified

== ENCOUNTER → 2017-08-31 | Outpatient (CLI) | payer OTHER ==
[~2017-08-31] VITALS: Ht 167.6 cm; Wt 103.0 kg
[2017-08-31 14:07] VITALS: BP 149/100
== END ==
LOC: SEN 07-04 15:36
DX: I11.0 Hypertensive heart disease with heart failure (principal); I25.10 Atherosclerotic heart disease of native coronary artery without angina pectoris; I21.3 ST elevation (STEMI) myocardial infarction of unspecified site; I63.9 Cerebral infarction, unspecified; E11.9 Type 2 diabetes mellitus without complications; I50.9 Heart failure, unspecified; J44.9 Chronic obstructive pulmonary disease, unspecified; E78.00 Pure hypercholesterolemia, unspecified; Z87.891 Personal history of nicotine dependence

== ENCOUNTER → 2017-09-28 | Outpatient (CLI) | payer OTHER ==
[~2017-09-28] VITALS: Ht 162.6 cm; Wt 102.5 kg
[2017-09-28 13:00] VITALS: BP 122/88
== END ==
LOC: SEN 09-14 08:27
DX: I10 Essential (primary) hypertension (principal); F32.9 Major depressive disorder, single episode, unspecified; G47.00 Insomnia, unspecified

== ENCOUNTER → 2017-10-26 | Outpatient (CLI) | payer OTHER ==
[~2017-10-26] VITALS: Ht 162.6 cm; Wt 103.0 kg
[~2017-10-26] MED LIST changes: -ACCUNEB SO1.25 MG/1 INH; -HYDROCODONE-AP1 EAC6 PO; -IMDUR 30 MG TAB30 M1 PO; -KEFLEX500 M1 PO; -KEPPRA 500 MG500 M1 PO; -LASIX 40 MG TAB40 M2 PO; -LEVAQUIN 500 M500 M2 PO; -OMEPRAZOLE 20 M20 M1 PO; -PREDNISONE 20 M20 MG PO; -RANEXA500 MG PO; -TRAMADOL 50 MG50 MG PO; -ZOFRAN ODT8 MG PO
[2017-10-26 13:05] VITALS: BP 123/81
== END ==
LOC: SEN 10:55
DX: I10 Essential (primary) hypertension (principal); I50.9 Heart failure, unspecified; J44.9 Chronic obstructive pulmonary disease, unspecified; I25.2 Old myocardial infarction

== ENCOUNTER 2017-11-11 17:21 | Emergency (ER) | payer OTHER ==
[~2017-11-11] VITALS: Ht 157.5 cm; Wt 99.8 kg
[2017-11-11 18:58] LABS: ABSOLUTE NEUTROPHILS 6.2 thou/uL (1.4-8.2); BASOPHILS 2.7 % (0.0-2.0); EOSINOPHILS 5.7 % (0.0-3.0); HEMATOCRIT 40.1 % (37.0-47.0); HEMOGLOBIN 13.5 gm/dL (12.0-15.0); LYMPHOCYTES 24.7 % (24.0-44.0); MCHC 33.6 g/dL (28.0-37.0); MCV 89.2 fL (80.0-100.0); MONOCYTES 8.8 % (1.0-8.0); POLYS 58.1 % (36.0-66.0); RBC 4.49 mil/uL (4.20-5.00); RDW 14.5 % (10.5-14.5); WBC 10.7 thou/uL (4.0-11.0)
[2017-11-11 19:07] LABS: CREATININE 1.1 mg/dL (0.6-1.0); POTASSIUM 3.8 mmol/L (3.5-5.1)
[2017-11-11 19:13] LABS: ALBUMIN 3.2 g/dL (3.4-5.0); APTT 28.7 Seconds (24.5-32.8); PROTIME 9.7 Seconds (9.3-11.4); TOTAL BILIRUBIN 0.2 mg/dL (<0.1-1.0); TOTAL PROTEIN 7.3 g/dL (6.4-8.2)
[2017-11-11 19:19] LABS: LARGE PLATELETS SEVERAL; PLATELET COUNT 323 thou/uL (150-400)
[2017-11-11] MEDS ORDERED: KEFLEX500 M1 PO (19:49)
[2017-11-11] MEDS ORDERED: HYDROCODONE-AP1 EAC6 PO (19:49)
== END 2017-11-11 20:39 | disposition home or self-care (01) ==
LOC: ER 17:21
PROVIDERS: Physician Assistant
DX: S01.21XA Laceration without foreign body of nose, initial encounter (principal); S63.617A Unspecified sprain of left little finger, initial encounter; S80.00XA Contusion of unspecified knee, initial encounter; I10 Essential (primary) hypertension; J44.9 Chronic obstructive pulmonary disease, unspecified; E11.9 Type 2 diabetes mellitus without complications; I11.0 Hypertensive heart disease with heart failure; I50.9 Heart failure, unspecified; E78.5 Hyperlipidemia, unspecified; E78.00 Pure hypercholesterolemia, unspecified; I25.2 Old myocardial infarction; Z95.1 Presence of aortocoronary bypass graft; F17.210 Nicotine dependence, cigarettes, uncomplicated; Z88.0 Allergy status to penicillin; W01.110A Fall on same level from slipping, tripping and stumbling with subsequent striking against sharp glass, initial encounter; Y93.89 Activity, other specified; Y92.89 Other specified places as the place of occurrence of the external cause; Y99.8 Other external cause status

== ENCOUNTER 2017-11-19 12:16 | Inpatient (IN) | payer OTHER ==
[~2017-11-19] VITALS: Ht 157.5 cm; Wt 104.3 kg
--- NOTE | ~2017-11-19 | EKG ---
[address] [employer] [place] [address] ELECTROCARDIOGRAM REPORT Name: ISIDRA NGUYEN TESS Room #: 355-P ADM IN M.R.#: [id number] Admission: 11/19/17 Attend Phys: Silas Lopez DO Discharge: Date of : 67 Report #: [id number] THIS REPORT FOR: //name// [facility] ED Test Date: 2017-11-19 Test Time: 12:23:00 Pat Name: ISIDRA NGUYEN Department: Room: Gender: F Financial Reporting Consultant: Rian PELAYO : 1965 Requested By: Denis Sepulveda Order Number: [id number] MD: Antony Arteaga Measurements Intervals [place] Rate: 53 P: 22 WI: 212 QRS: -52 QRSD: 124 T: 132 QT: 454 QTc: 427 Interpretive Statements Sinus rhythm LVH with QRS widening and repolarization abnormality Compared to ECG 05/30/2017 06:18:46 Limb lead reversal is no longer present Electronically Signed On 11-20-2017 8:07:57 CDT by Antony Arteaga [email or web address] <ELECTRONICALLY SIGNED> By: Antony Arteaga MD, [facility] 11/20/17 0807 1223 1223 Antony Arteaga MD, [facility] /EPI
[2017-11-19 12:16] VITALS: BP 119/74
[~2017-11-19 12:16] MED LIST changes: +HYDROCODONE-AP1 EAC6 PO; +KEFLEX500 M1 PO
[2017-11-19 12:52] LABS: BASOPHILS 1.2 % (0.0-2.0); EOSINOPHILS 6.5 % (0.0-3.0); HEMATOCRIT 39.5 % (37.0-47.0); HEMOGLOBIN 13.2 gm/dL (12.0-15.0); LYMPHOCYTES 27.6 % (24.0-44.0); MCH 29.8 pg (26.0-34.0); MCHC 33.5 g/dL (28.0-37.0); MONOCYTES 8.8 % (1.0-8.0); PLATELET COUNT 334 thou/uL (150-400); POLYS 55.9 % (36.0-66.0); RBC 4.44 mil/uL (4.20-5.00); RDW 13.9 % (10.5-14.5); WBC 12.6 thou/uL (4.0-11.0)
[2017-11-19 13:01] LABS: CALCIUM 9.2 mg/dL (8.5-10.1); CREATININE 1.1 mg/dL (0.6-1.0)
[2017-11-19 13:10] LABS: TROPONIN-I 0.12 ng/mL (<0.06)
[2017-11-19 14:55] VITALS: BP 119/74
[2017-11-19 16:36] VITALS: BP 111/42
[2017-11-19 20:30] VITALS: BP 123/84
[2017-11-19 23:50] VITALS: BP 105/70
[2017-11-20 05:05] VITALS: BP 129/94
[2017-11-20 07:46] VITALS: BP 158/101
[2017-11-20 09:13] LABS: ABSOLUTE NEUTROPHILS 5.7 thou/uL (1.4-8.2); BASOPHILS 1.5 % (0.0-2.0); EOSINOPHILS 6.5 % (0.0-3.0); HEMATOCRIT 41.1 % (37.0-47.0); HEMOGLOBIN 13.4 gm/dL (12.0-15.0); LYMPHOCYTES 20.2 % (24.0-44.0); MCH 29.2 pg (26.0-34.0); MCHC 32.7 g/dL (28.0-37.0); MCV 89.5 fL (80.0-100.0); MONOCYTES 6.5 % (1.0-8.0); POLYS 65.3 % (36.0-66.0); RBC 4.59 mil/uL (4.20-5.00); RDW 14.1 % (10.5-14.5); WBC 8.7 thou/uL (4.0-11.0)
[2017-11-20 09:14] LABS: PLATELET COUNT 333 thou/uL (150-400)
[2017-11-20 09:21] LABS: CALCIUM 9.5 mg/dL (8.5-10.1); CREATININE 0.9 mg/dL (0.6-1.0)
[2017-11-20 12:00] VITALS: BP 118/85
[2017-11-20 18:11] VITALS: BP 129/83
[2017-11-20 19:42] VITALS: BP 114/78
[2017-11-21 03:53] VITALS: BP 128/84
[2017-11-21 04:34] LABS: ABSOLUTE NEUTROPHILS 8.8 thou/uL (1.4-8.2); BASOPHILS 1.1 % (0.0-2.0); EOSINOPHILS 4.6 % (0.0-3.0); HEMATOCRIT 42.2 % (37.0-47.0); HEMOGLOBIN 13.8 gm/dL (12.0-15.0); LYMPHOCYTES 19.8 % (24.0-44.0); MCH 29.2 pg (26.0-34.0); MCHC 32.8 g/dL (28.0-37.0); MCV 89.2 fL (80.0-100.0); MONOCYTES 8.3 % (1.0-8.0); PLATELET COUNT 386 thou/uL (150-400); POLYS 66.2 % (36.0-66.0); RBC 4.73 mil/uL (4.20-5.00); RDW 13.9 % (10.5-14.5); WBC 13.3 thou/uL (4.0-11.0)
[2017-11-21 04:45] LABS: CALCIUM 9.4 mg/dL (8.5-10.1); CREATININE 1.1 mg/dL (0.6-1.0); POTASSIUM 4.3 mmol/L (3.5-5.1)
[2017-11-21 07:20] VITALS: BP 146/94
[2017-11-21] MEDS ORDERED: RANEXA500 MG PO (08:38)
[2017-11-21] MEDS ORDERED: IMDUR 30 MG TAB30 M1 PO (08:38)
[2017-11-21] MEDS ORDERED: LEVAQUIN 500 M500 M2 PO (08:41)
[2017-11-21 09:28] VITALS: BP 146/94
[2017-11-21 10:05] VITALS: BP 146/94
== END 2017-11-21 10:05 | disposition home or self-care (01) | DRG 302 ==
LOC: ER 12:16 → EROBS 14:15 → 3W 16:16 → ENTRNSPT 11-21 09:56 → EDTRNSPTSTS 11-21 10:01 → 3W 11-21 10:05
PROVIDERS: Emergency Medicine; Family Medicine
DX: I25.110 Atherosclerotic heart disease of native coronary artery with unstable angina pectoris (principal); J18.9 Pneumonia, unspecified organism; I11.0 Hypertensive heart disease with heart failure; I50.9 Heart failure, unspecified; E11.9 Type 2 diabetes mellitus without complications; E78.5 Hyperlipidemia, unspecified; J44.9 Chronic obstructive pulmonary disease, unspecified; E78.00 Pure hypercholesterolemia, unspecified; B19.20 Unspecified viral hepatitis C without hepatic coma; F17.210 Nicotine dependence, cigarettes, uncomplicated; I25.2 Old myocardial infarction; Z86.73 Personal history of transient ischemic attack (TIA), and cerebral infarction without residual deficits; Z95.1 Presence of aortocoronary bypass graft; Z90.49 Acquired absence of other specified parts of digestive tract; Z91.14 Patient's other noncompliance with medication regimen; Z90.710 Acquired absence of both cervix and uterus; Z79.02 Long term (current) use of antithrombotics/antiplatelets; Z79.84 Long term (current) use of oral hypoglycemic drugs; Z79.82 Long term (current) use of aspirin; Z79.899 Other long term (current) drug therapy; Z88.0 Allergy status to penicillin; Z82.49 Family history of ischemic heart disease and other diseases of the circulatory system
CPT/HCPCS: 10879

== ENCOUNTER 2017-12-04 11:30 | Inpatient (IN) | payer OTHER ==
[~2017-12-04] VITALS: Ht 157.5 cm; Wt 105.6 kg
--- NOTE | ~2017-12-04 | EKG ---
[address] [address] ELECTROCARDIOGRAM REPORT Name: ISIDRA NGUYEN Room #: 170-10 ADM IN M.R.#: [id number] Admission: 12/04/17 Attend Phys: Murray Jarrell MD Discharge: Date of : 67 Report #: [id number] THIS REPORT FOR: //name// [facility] ED Test Date: 2017-12-04 Test Time: 12:53:45 Pat Name: ISIDRA NGUYEN Department: Room: Gender: F Venture Capital Analyst: KF : 1965 Requested By: Rudy Hunt Order Number: [id number] MD: Orlin Zeng Measurements Intervals [place] Rate: 60 P: 19 MN: 210 QRS: -54 QRSD: 131 T: 119 QT: 455 QTc: 455 Interpretive Statements Sinus rhythm Prolonged MN interval Left bundle branch block Compared to ECG 11/19/2017 12:23:00 First degree AV block now present Left bundle-branch block now present Left ventricular hypertrophy no longer present Early repolarization no longer present Electronically Signed On 12-04-2017 15:47:13 CDT by Orlin Zeng [email or web address] <ELECTRONICALLY SIGNED> By: Orlin Zeng MD 12/04/17 1547 1253 1253 Orlin Zeng MD /EPI
--- NOTE | ~2017-12-04 | HC ---
[facility] [place] [address] CONSULTATION Name: ISIDRA NGUYEN Room #: 209-P [facility] IN M.R.#: [id number] Admission: 12/04/17 Attend Phys: Murray Jarrell MD Discharge: 12/05/17 Date of : 67 Report #: [id number] THIS REPORT FOR: //name// CC: Murray Pepper Akkulugari DATE OF SERVICE: 12/05/2017 INDICATION: Dizziness. HISTORY OF PRESENT ILLNESS: This is a 52-year-old female with a history of CABG, CVA, hypertension, diabetes mellitus, presenting with lightheadedness. She developed lightheadedness last evening, checked the blood pressure, with a low systolic. She had a repeat episode and again the blood pressure was on the low side. She denies any symptoms of chest pains, dyspnea, fever, nausea or diarrhea. She does admit to a lack of fluid intake. She is unsure if she is on a diabetic medication although this is not listed in her office notes. In the ER, the patient was found to be orthostatic and managed with hydration. This morning, she feels back to normal, reports no further episodes of lightheadedness. Her blood pressure is stable. PAST MEDICAL HISTORY: CABG in 2016. Non-ST elevation MA in 05/2017, undergoing placement of a stent into the proximal LAD/first diagonal artery. There is a patent BRITTON graft to the LAD and SVG and a saphenous vein graft to the PDA. There are occlusions involving the second diagonal artery and first OM artery, medical therapy is recommended. History of prior CVA with residual left-sided weakness. Diabetes mellitus, hypertension, nonsustained VT, hypercholesterolemia, edema, tobacco use. ALLERGIES: Include PENICILLIN. MEDICATIONS: Include aspirin 81, Lipitor 40, Plavix 75, lisinopril 40, Toprol-XL 50 mg and Paxil. SOCIAL HISTORY: Positive tobacco use. FAMILY HISTORY: Negative for premature CAD. REVIEW OF SYSTEMS: A full 10-point review of systems performed. Only the pertinent positives and negatives are described in the HPI. PHYSICAL EXAMINATION: VITAL SIGNS: Blood pressure is 125/80, heart rate is 70 beats per minute. GENERAL APPEARANCE: This is an overweight female in no acute respiratory distress. HEAD AND EYES: Normocephalic. Sclerae are anicteric. [facility] [address] [place] [address] CONSULTATION Name: ISIDRA NGUYEN TESS Room #: 209-P [facility] IN M.R.#: [id number] Admission: 12/04/17 Attend Phys: Murray Jarrell MD Discharge: 12/05/17 Date of : 67 Report #: [id number] ENT: Oral mucosa moist. NECK: Supple. LUNGS: Clear to auscultation. CARDIAC: Regular rate and rhythm, S1, S2 positive. ABDOMEN: Soft, nontender. EXTREMITIES: No cyanosis. Trace edema. ECG reveals sinus rhythm, left bundle-branch block. LABORATORY VALUES: White count 9.8, hemoglobin is 12.5. Sodium is 141. Creatinine initially was 1.9, down to 1.2. Troponin level is 0.13. IMPRESSION AND PLAN: 1. Orthostatic hypotension, secondary to dehydration. I discussed the importance of maintaining an adequate diet including fluid intake. Her blood pressure has improved with hydration. I would not resume the JAKOB inhibitor or beta padmini at this time. She does want to go home and this should not be a problem. I will have the patient follow up to assess her blood pressure changes. 2. Coronary artery disease/coronary artery bypass graft/percutaneous coronary intervention, minimal troponin elevation, but clinically asymptomatic. Would continue with medical therapy. She will continue with aspirin and Plavix. 3. Tobacco use, complete smoking cessation is discussed. 4. Acute kidney injury, creatinine 1.9, decreased to 1.2 after hydration. Continue to follow. 5. Hypertension, continue to hold meds and will follow up as an outpatient. 6. Hyperlipidemia, continue with statin therapy. <ELECTRONICALLY SIGNED> By: Alverto [place] MD 12/06/17 1035 0845 1047 Alverto [place] MD /nt
[~2017-12-04 11:30] MED LIST changes: +IMDUR 30 MG TAB30 M1 PO; +LEVAQUIN 500 M500 M2 PO; +RANEXA500 MG PO
[2017-12-04 11:36] VITALS: BP 134/109
[2017-12-04 13:53] LABS: ABSOLUTE NEUTROPHILS 6.7 thou/uL (1.4-8.2); BASOPHILS 1.4 % (0.0-2.0); EOSINOPHILS 7.3 % (0.0-3.0); HEMATOCRIT 41.7 % (37.0-47.0); HEMOGLOBIN 13.9 gm/dL (12.0-15.0); LYMPHOCYTES 27.4 % (24.0-44.0); MCH 29.8 pg (26.0-34.0); MCHC 33.3 g/dL (28.0-37.0); MCV 89.3 fL (80.0-100.0); MONOCYTES 8.2 % (1.0-8.0); PLATELET COUNT 342 thou/uL (150-400); POLYS 55.7 % (36.0-66.0); RBC 4.67 mil/uL (4.20-5.00); RDW 14.1 % (10.5-14.5); WBC 12.1 thou/uL (4.0-11.0)
[2017-12-04 14:05] LABS: CALCIUM 9.4 mg/dL (8.5-10.1); CREATININE 1.9 mg/dL (0.6-1.0)
[2017-12-04 14:14] LABS: TROPONIN-I 0.13 ng/mL (<0.06)
[2017-12-04 14:41] LABS: LARGE PLATELETS OCCASIONAL
[2017-12-04 15:27] VITALS: BP 99/52
[2017-12-04 15:55] VITALS: BP 130/72
[2017-12-04 16:46] LABS: URINE BILIRUBIN NEGATIVE (Negative); URINE BLOOD NEGATIVE (Negative); URINE CLARITY CLEAR; URINE COLOR YELLOW; URINE GLUCOSE-RANDOM* NEGATIVE (Negative); URINE KETONES NEGATIVE (Negative); URINE LEUKOCYTES-REFLEX NEGATIVE (Negative); URINE NITRITE-REFLEX NEGATIVE (Negative); URINE PROTEIN (DIPSTICK) NEGATIVE (Negative); URINE UROBILINOGEN 0.2 E.U./dl (0.2-1.0)
[2017-12-04 17:17] VITALS: BP 113/75
[2017-12-04 19:45] VITALS: BP 107/64
[2017-12-05] VITALS: BP 137/93
[2017-12-05 02:26] LABS: AMP/METHAMP Negative (Negative); BARBITURATES Negative (Negative); BENZODIAZEPINES Negative (Negative); COCAINE Negative (Negative); METHADONE Negative (Negative); OPIATES POSITIVE (Negative); PCP Negative (Negative)
[2017-12-05 04:16] LABS: CALCIUM 8.7 mg/dL (8.5-10.1); CREATININE 1.2 mg/dL (0.6-1.0); MAGNESIUM 1.9 mg/dL (1.8-2.4); POTASSIUM 4.4 mmol/L (3.5-5.1)
[2017-12-05 04:23] VITALS: BP 126/70
[2017-12-05 04:27] LABS: HEMOGLOBIN 12.5 gm/dL (12.0-15.0); MCHC 33.7 g/dL (28.0-37.0)
[2017-12-05 04:32] LABS: ABSOLUTE NEUTROPHILS 4.4 thou/uL (1.4-8.2); BASOPHILS 2.3 % (0.0-2.0); EOSINOPHILS 10.6 % (0.0-3.0); HEMATOCRIT 37.1 % (37.0-47.0); LYMPHOCYTES 31.7 % (24.0-44.0); MCH 30.1 pg (26.0-34.0); MCV 89.3 fL (80.0-100.0); MONOCYTES 10.6 % (1.0-8.0); PLATELET COUNT 309 thou/uL (150-400); POLYS 44.8 % (36.0-66.0); RBC 4.16 mil/uL (4.20-5.00); RDW 14.3 % (10.5-14.5); WBC 9.8 thou/uL (4.0-11.0)
[2017-12-05 05:07] LABS: LARGE PLATELETS OCCASIONAL
[2017-12-05 09:04] VITALS: BP 128/70
[2017-12-05 11:05] VITALS: BP 128/70
== END 2017-12-05 11:30 | disposition home or self-care (01) | DRG 315 ==
LOC: ER 11:30 → EROBS 15:10 → 2N 16:49 → ENTRNSPT 12-05 11:12 → 2N 12-05 11:30
PROVIDERS: Hospitalist; Nurse Practitioner; Physician Assistant
DX: I95.9 Hypotension, unspecified (principal); N17.9 Acute kidney failure, unspecified; I25.10 Atherosclerotic heart disease of native coronary artery without angina pectoris; J44.9 Chronic obstructive pulmonary disease, unspecified; E86.0 Dehydration; E78.5 Hyperlipidemia, unspecified; E11.9 Type 2 diabetes mellitus without complications; F17.210 Nicotine dependence, cigarettes, uncomplicated; I50.9 Heart failure, unspecified; I11.0 Hypertensive heart disease with heart failure; I27.20 Pulmonary hypertension, unspecified; M25.512 Pain in left shoulder; Z79.82 Long term (current) use of aspirin; Z79.51 Long term (current) use of inhaled steroids; Z79.899 Other long term (current) drug therapy; Z95.1 Presence of aortocoronary bypass graft; Z86.73 Personal history of transient ischemic attack (TIA), and cerebral infarction without residual deficits; Z86.19 Personal history of other infectious and parasitic diseases; Z88.0 Allergy status to penicillin; Z88.8 Allergy status to other drugs, medicaments and biological substances
CPT/HCPCS: 10081

== ENCOUNTER 2017-12-11 15:47 | Emergency (ER) | payer OTHER ==
[~2017-12-11] VITALS: Ht 157.5 cm; Wt 103.0 kg
[2017-12-11] MEDS ORDERED: NORCO 5-325 TA1 EACH PO (16:45)
== END 2017-12-11 16:54 | disposition home or self-care (01) ==
LOC: ER 15:47
DX: S89.92XA Unspecified injury of left lower leg, initial encounter (principal); W19.XXXA Unspecified fall, initial encounter; Y93.89 Activity, other specified; Y92.89 Other specified places as the place of occurrence of the external cause; Y99.8 Other external cause status; I11.0 Hypertensive heart disease with heart failure; I50.9 Heart failure, unspecified; J44.9 Chronic obstructive pulmonary disease, unspecified; E11.9 Type 2 diabetes mellitus without complications; E78.5 Hyperlipidemia, unspecified; E78.00 Pure hypercholesterolemia, unspecified; I25.2 Old myocardial infarction; Z87.01 Personal history of pneumonia (recurrent); I25.810 Atherosclerosis of coronary artery bypass graft(s) without angina pectoris; F41.9 Anxiety disorder, unspecified; F32.9 Major depressive disorder, single episode, unspecified; F17.210 Nicotine dependence, cigarettes, uncomplicated; Z88.0 Allergy status to penicillin

== ENCOUNTER → 2018-01-04 | Outpatient (CLI) | payer OTHER ==
[2018-01-04 13:22] VITALS: BP 165/96
== END ==
LOC: SEN 08:47
DX: M25.512 Pain in left shoulder (principal); I10 Essential (primary) hypertension

== ENCOUNTER 2018-01-29 17:12 | Emergency (ER) | payer OTHER ==
[~2018-01-29] VITALS: Ht 157.5 cm; Wt 103.0 kg
--- NOTE | ~2018-01-29 | EKG ---
[place] [address] 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: as : 1965 Requested By: Monet Birmingham Order Number: [id number] MD: Antony Arteaga Measurements Intervals [place] Rate: 90 P: 15 MA: 200 QRS: -56 QRSD: 122 T: 117 QT: 399 QTc: 489 Interpretive Statements Sinus rhythm Atrial premature complex Left anterior hemiblock LVH with IVCD, LAD and secondary repol abnrm Borderline prolonged QT interval Compared to ECG 12/04/2017 12:53:45 Atrial premature complex(es) now present Electronically Signed On 01-30-2018 8:01:25 CDT by Antony Arteaga [email or web address] <ELECTRONICALLY SIGNED> By: Antony Arteaga MD, FACC 01/30/18 0801 1735 1735 Antony Arteaga MD, [facility] /EPI
[2018-01-29 18:26] LABS: ABSOLUTE NEUTROPHILS 8.1 thou/uL (1.4-8.2); EOSINOPHILS 3.6 % (0.0-3.0); HEMATOCRIT 41.8 % (37.0-47.0); HEMOGLOBIN 13.7 gm/dL (12.0-15.0); LYMPHOCYTES 27.1 % (24.0-44.0); MCH 29.8 pg (26.0-34.0); MCHC 32.8 g/dL (28.0-37.0); PLATELET COUNT 293 thou/uL (150-400); POLYS 59.3 % (36.0-66.0); RBC 4.59 mil/uL (4.20-5.00); RDW 14.5 % (10.5-14.5); WBC 13.7 thou/uL (4.0-11.0)
[2018-01-29 18:39] LABS: CALCIUM 9.1 mg/dL (8.5-10.1); CREATININE 1.6 mg/dL (0.6-1.0)
== END 2018-01-29 21:41 | disposition home or self-care (01) ==
LOC: ER 17:12
PROVIDERS: Emergency Medicine
DX: I95.1 Orthostatic hypotension (principal); E86.0 Dehydration; N28.9 Disorder of kidney and ureter, unspecified; F17.210 Nicotine dependence, cigarettes, uncomplicated; I25.2 Old myocardial infarction; E11.9 Type 2 diabetes mellitus without complications; I11.0 Hypertensive heart disease with heart failure; I50.9 Heart failure, unspecified; E78.5 Hyperlipidemia, unspecified; J44.9 Chronic obstructive pulmonary disease, unspecified; E78.00 Pure hypercholesterolemia, unspecified; I21.4 Non-ST elevation (NSTEMI) myocardial infarction; F41.9 Anxiety disorder, unspecified; F32.9 Major depressive disorder, single episode, unspecified; Z86.73 Personal history of transient ischemic attack (TIA), and cerebral infarction without residual deficits; Z90.49 Acquired absence of other specified parts of digestive tract; Z90.710 Acquired absence of both cervix and uterus; Z90.81 Acquired absence of spleen; Z88.0 Allergy status to penicillin

== ENCOUNTER → 2018-04-19 | Outpatient (CLI) | payer OTHER ==
[~2018-04-19] MED LIST changes: +ACCUNEB SO1.25 MG/1 INH; +KEPPRA 500 MG500 M1 PO; +LASIX 40 MG TAB40 M2 PO; +OMEPRAZOLE 20 M20 M1 PO; +PREDNISONE 20 M20 MG PO; +TRAMADOL 50 MG50 MG PO; +ZOFRAN ODT8 MG PO
[2018-04-19 14:32] VITALS: BP 162/95
[2018-04-19 15:58] LABS: ABSOLUTE NEUTROPHILS 6.4 thou/uL (1.4-8.2); BASOPHILS 1.1 % (0.0-2.0); EOSINOPHILS 4.7 % (0.0-3.0); HEMATOCRIT 38.8 % (37.0-47.0); HEMOGLOBIN 12.9 gm/dL (12.0-15.0); LYMPHOCYTES 28.8 % (24.0-44.0); MCH 29.8 pg (26.0-34.0); MCHC 33.3 g/dL (28.0-37.0); MCV 89.4 fL (80.0-100.0); MONOCYTES 8.4 % (1.0-8.0); RBC 4.33 mil/uL (4.20-5.00); RDW 14.3 % (10.5-14.5); WBC 11.3 thou/uL (4.0-11.0)
[2018-04-19 16:16] LABS: LARGE PLATELETS FEW; PLATELET COUNT 316 thou/uL (150-400); PLATELET ESTIMATE NORMAL
[2018-04-19 16:19] LABS: ALBUMIN 3.1 g/dL (3.4-5.0); CALCIUM 9.5 mg/dL (8.5-10.1); TOTAL BILIRUBIN 0.3 mg/dL (<0.1-1.0); TOTAL PROTEIN 7.4 g/dL (6.4-8.2)
== END ==
LOC: SEN 04-12 10:06
PROVIDERS: Emergency Medicine
DX: Z01.818 Encounter for other preprocedural examination (principal); I11.0 Hypertensive heart disease with heart failure; I50.9 Heart failure, unspecified; E78.5 Hyperlipidemia, unspecified; J44.9 Chronic obstructive pulmonary disease, unspecified; E11.9 Type 2 diabetes mellitus without complications; E78.00 Pure hypercholesterolemia, unspecified; Z87.891 Personal history of nicotine dependence; I25.10 Atherosclerotic heart disease of native coronary artery without angina pectoris

== ENCOUNTER 2018-04-26 04:19 | Emergency (ER) | payer OTHER ==
[~2018-04-26] VITALS: Ht 157.5 cm; Wt 108.0 kg
--- NOTE | ~2018-04-26 | EKG ---
[address] [place] [address] ELECTROCARDIOGRAM REPORT Name: ISIDRA NGUYEN Room #: DEP Meaghan#: [id number] Admission: 04/26/18 Attend Phys: Discharge: 04/26/18 Date of : 67 Report #: [id number] THIS REPORT FOR: //name// [facility] ED Test Date: 2018-04-26 Test Time: 04:44:00 Pat Name: ISIDRA NGUYEN Department: Room: Gender: F Chair Spring Assembler: FRANCISCO : 1965 Requested By: Elijah Mendez Order Number: [id number] MD: Orlin Zeng Measurements Intervals [place] Rate: 102 P: 38 KS: 199 QRS: -55 QRSD: 119 T: 111 QT: 358 QTc: 467 Interpretive Statements Sinus tachycardia Borderline prolonged [place] interval Incomplete left bundle branch block LVH with secondary repolarization abnormality Anterior Q waves, possibly due to LVH Electronically Signed On 04-27-2018 8:12:40 CDT by Orlin Zeng [email or web address] <ELECTRONICALLY SIGNED> By: Orlin Zeng MD 04/27/1812 D: 10443 3 Orlin Zeng MD /CECILIO
[~2018-04-26 04:19] MED LIST changes: -ACCUNEB SO1.25 MG/1 INH; -PREDNISONE 20 M20 MG PO; -TRAMADOL 50 MG50 MG PO; -ZOFRAN ODT8 MG PO
[2018-04-26 05:41] LABS: HEMATOCRIT 39.5 % (37.0-47.0); HEMOGLOBIN 13.2 gm/dL (12.0-15.0); MCH 29.7 pg (26.0-34.0); MCHC 33.3 g/dL (28.0-37.0); MCV 89.3 fL (80.0-100.0); PLATELET COUNT 335 thou/uL (150-400); RBC 4.43 mil/uL (4.20-5.00); WBC 23.5 thou/uL (4.0-11.0)
[2018-04-26 05:47] LABS: CALCIUM 9.6 mg/dL (8.5-10.1)
[2018-04-26 05:50] LABS: POTASSIUM 4.2 mmol/L (3.5-5.1)
[2018-04-26 05:55] LABS: ALBUMIN 3.1 g/dL (3.4-5.0); TOTAL BILIRUBIN 0.5 mg/dL (<0.1-1.0); TOTAL PROTEIN 7.7 g/dL (6.4-8.2); TROPONIN-I 0.14 ng/mL (<0.06)
[2018-04-26] MEDS ORDERED: ZOFRAN ODT8 MG PO (08:05)
[2018-04-26] MEDS ORDERED: PREDNISONE 20 M20 MG PO (08:05)
[2018-04-26] MEDS ORDERED: TRAMADOL 50 MG50 MG PO (08:05)
[2018-05-01] MEDS ORDERED: ACCUNEB SO1.25 MG/1 INH (13:33)
== END 2018-04-26 08:20 | disposition home or self-care (01) ==
LOC: ER 04:19
PROVIDERS: Emergency Medicine
DX: J44.1 Chronic obstructive pulmonary disease with (acute) exacerbation (principal); D72.829 Elevated white blood cell count, unspecified; M54.5 Low back pain; R11.2 Nausea with vomiting, unspecified; G89.29 Other chronic pain; M25.572 Pain in left ankle and joints of left foot; Z91.14 Patient's other noncompliance with medication regimen; E11.9 Type 2 diabetes mellitus without complications; I11.0 Hypertensive heart disease with heart failure; I50.9 Heart failure, unspecified; E78.5 Hyperlipidemia, unspecified; I95.9 Hypotension, unspecified; F41.9 Anxiety disorder, unspecified; F32.9 Major depressive disorder, single episode, unspecified; F17.210 Nicotine dependence, cigarettes, uncomplicated; Z86.73 Personal history of transient ischemic attack (TIA), and cerebral infarction without residual deficits; Z90.81 Acquired absence of spleen; Z90.49 Acquired absence of other specified parts of digestive tract; E78.00 Pure hypercholesterolemia, unspecified; Z90.711 Acquired absence of uterus with remaining cervical stump; Z88.0 Allergy status to penicillin

== ENCOUNTER 2018-06-09 17:54 | Emergency (ER) | payer OTHER ==
[~2018-06-09] VITALS: Ht 157.5 cm; Wt 112.5 kg
--- NOTE | ~2018-06-09 | EKG ---
[address] [place] [address] ELECTROCARDIOGRAM REPORT Name: OG NGUYENHOLLI PULIDO [id number] Admission: 06/09/18 Attend Phys: Discharge: 06/09/18 Date of : 67 Report #: [id number] THIS REPORT FOR: //name// [facility] ED Test Date: 2018-06-09 Test Time: 18:45:06 Pat Name: ISIDRA NGUYEN Department: Room: Gender: F Assistant Designer: : 1965 Requested By: Penny River Order Number: [id number] MD: Austin Randall Measurements Intervals [place] Rate: 74 P: 19 NV: 194 QRS: -51 QRSD: 127 T: 71 QT: 428 QTc: 475 Interpretive Statements Sinus rhythm Incomplete Left bundle branch block Compared to ECG 04/26/2018 04:44:00 Sinus tachycardia no longer present Electronically Signed On 06-10-2018 23:41:05 HAND BINDERY ASSEMBLY WORKER by Austin Randall [email or web address] <ELECTRONICALLY SIGNED> By: Austni Randall MD 06/10/18 2341 1845 44 Austin Randall MD /CECILIO
[~2018-06-09 17:54] MED LIST changes: +ACCUNEB SO1.25 MG/1 INH; +PREDNISONE 20 M20 MG PO; +TRAMADOL 50 MG50 MG PO; +ZOFRAN ODT8 MG PO
[2018-06-09 19:59] LABS: HEMATOCRIT 35.3 % (37.0-47.0); HEMOGLOBIN 11.8 gm/dL (12.0-15.0); MCH 29.6 pg (26.0-34.0); MCHC 33.3 g/dL (28.0-37.0); MCV 89.1 fL (80.0-100.0); PLATELET COUNT 485 thou/uL (150-400); RBC 3.96 mil/uL (4.20-5.00); WBC 11.5 thou/uL (4.0-11.0)
[2018-06-09 20:00] LABS: CALCIUM 9.4 mg/dL (8.5-10.1); CREATININE 1.4 mg/dL (0.6-1.0); POTASSIUM 3.5 mmol/L (3.5-5.1)
[2018-06-09 20:22] LABS: ABSOLUTE NEUTROPHILS 4.8 thou/uL (1.4-8.2); PLATELET ESTIMATE NORMAL
[2018-06-09 22:12] VITALS: BP 119/81
== END 2018-06-09 21:58 | disposition home or self-care (01) ==
LOC: ER 17:54
PROVIDERS: Emergency Medicine
DX: R60.0 Localized edema (principal); I11.0 Hypertensive heart disease with heart failure; I50.9 Heart failure, unspecified; E11.9 Type 2 diabetes mellitus without complications; E78.5 Hyperlipidemia, unspecified; J44.9 Chronic obstructive pulmonary disease, unspecified; E78.00 Pure hypercholesterolemia, unspecified; F41.9 Anxiety disorder, unspecified; Z90.710 Acquired absence of both cervix and uterus; I25.2 Old myocardial infarction; Z87.01 Personal history of pneumonia (recurrent); F32.9 Major depressive disorder, single episode, unspecified; F17.210 Nicotine dependence, cigarettes, uncomplicated; Z88.0 Allergy status to penicillin

== ENCOUNTER 2018-06-18 10:36 | Emergency (ER) | payer OTHER ==
[~2018-06-18] VITALS: Ht 157.5 cm; Wt 104.3 kg
--- NOTE | ~2018-06-18 | EKG ---
[address] [place] [address] ELECTROCARDIOGRAM REPORT Name: OG NGUYENNDY TESS [facility]: [facility]P [facility] [id number] Admission: 06/18/18 Attend Phys: Discharge: 06/18/18 Date of : 67 Report #: [id number] THIS REPORT FOR: //name// [facility] ED Test Date: 2018-06-18 Test Time: 11:00:15 Pat Name: ISIDRA NGUYEN Department: Room: Gender: F Transmission Inspector: JOSÉ : 1965 Requested By: Candi Guzman Order Number: [id number] MD: Antony Arteaga Measurements Intervals [place] Rate: 74 P: 22 IN: 202 QRS: -53 QRSD: 124 T: 90 QT: 413 QTc: 459 Interpretive Statements Sinus rhythm Borderline prolonged IN interval Left bundle branch block Compared to ECG 06/09/2018 18:45:06 No significant changes Electronically Signed On 06-18-2018 16:38:25 [employer]ESTR[employer] by Antony Arteaga [email or web address] <ELECTRONICALLY SIGNED> By: Antony Arteaga MD, [facility] 06/18/18 1638 1100 99 Antony Arteaga MD, FACC /EPI
[2018-06-18 11:55] LABS: CALCIUM 9.9 mg/dL (8.5-10.1); CREATININE 1.5 mg/dL (0.6-1.0); POTASSIUM 4.6 mmol/L (3.5-5.1)
[2018-06-18 12:03] LABS: ALBUMIN 3.2 g/dL (3.4-5.0); TOTAL BILIRUBIN 0.5 mg/dL (<0.1-1.0); TOTAL PROTEIN 7.9 g/dL (6.4-8.2); TROPONIN-I 0.16 ng/mL (<0.06)
[2018-06-18 12:24] LABS: ABSOLUTE NEUTROPHILS 6.5 thou/uL (1.4-8.2); BASOPHILS 1.4 % (0.0-2.0); EOSINOPHILS 4.1 % (0.0-3.0); HEMATOCRIT 37.1 % (37.0-47.0); HEMOGLOBIN 12.3 gm/dL (12.0-15.0); LYMPHOCYTES 21.2 % (24.0-44.0); MCH 29.4 pg (26.0-34.0); MCHC 33.3 g/dL (28.0-37.0); MCV 88.3 fL (80.0-100.0); MONOCYTES 7.7 % (1.0-8.0); POLYS 65.6 % (36.0-66.0); WBC 9.9 thou/uL (4.0-11.0)
[2018-06-18 13:20] VITALS: BP 91/61
[2018-06-18 13:41] LABS: PLATELET COUNT 444 thou/uL (150-400)
== END 2018-06-18 13:36 | disposition home or self-care (01) ==
LOC: ER 10:36
PROVIDERS: Physician Assistant
DX: R06.02 Shortness of breath (principal); J44.9 Chronic obstructive pulmonary disease, unspecified; I11.0 Hypertensive heart disease with heart failure; I50.9 Heart failure, unspecified; I25.2 Old myocardial infarction; E78.00 Pure hypercholesterolemia, unspecified; F41.9 Anxiety disorder, unspecified; F32.9 Major depressive disorder, single episode, unspecified; Z87.01 Personal history of pneumonia (recurrent); E11.9 Type 2 diabetes mellitus without complications; E78.5 Hyperlipidemia, unspecified; I25.810 Atherosclerosis of coronary artery bypass graft(s) without angina pectoris; F17.210 Nicotine dependence, cigarettes, uncomplicated; Z88.0 Allergy status to penicillin

== ENCOUNTER → 2018-07-05 | Outpatient (CLI) | payer OTHER ==
[2018-07-05 12:57] LABS: BE(vivo) -0.5 mmol/L (-2 to +3); HCO3 22.7 mmol/L (22.0-26.0); PCO2 33.1 mmHg (35.0-45.0); PO2 73.6 mmHg (80.0-100.0); pH 7.454 (7.360-7.450); sO2 95.6 % (92.0-98.0)
== END ==
LOC: PUL 12:31
PROVIDERS: Internal Medicine Pulmonary Disease
DX: J44.9 Chronic obstructive pulmonary disease, unspecified (principal); R06.09 Other forms of dyspnea

== ENCOUNTER → 2018-10-05 | Outpatient (CLI) | payer OTHER ==
--- NOTE | 2018-10-08 10:08 | SLE ---
[facility] [place] [address] POLYSOMNOGRAPHY STUDY Name: ISIDRA NGUYEN Room #: REG [facility]#: [id number] Admission: 10/05/18 ������������������ Attend Phys: Immanuel Gomez MD Discharge: ������������������ Date of : 67 Report #: [id number] THIS REPORT FOR: //name// CC: Immanuel Lozada MD DATE OF SERVICE: 10/05/2018 ATTENDING PHYSICIAN: Dr. Bradley Lozada. The patient is a 53-year-old who weighs 239 pounds with a BMI of 42.3. The patient's Grifton score was 8. The patient underwent diagnostic sleep study at [facility]. During the night study, the patient spent 482 minutes in bed and slept for 417 minutes with a sleep efficiency of 86%. Sleep latency was 25 minutes with a REM latency of 316 minutes. Overall sleep architecture showed normal stage 1 sleep, increased stage 2 sleep, reduced N3 sleep and reduced REM sleep. During the night study, the patient had 1 obstructive apnea, no mixed or central apneas and 39 hypopneas. The patient's apnea-hypopnea index was 5.8 per hour with a REM index of 21.8 per hour. The patient's supine index was 5.1 per hour. EKG monitoring revealed an average heart rate of 67 beats per minute. Occasional PVCs seen, but no sustained arrhythmias observed. PLMS were not observed. Nocturnal oximetry study revealed an average oxygen saturation of 88% with the lowest of 72%. 347 minutes were spent at an oxygen saturation of less than 89%. There was a sustained pattern of nocturnal hypoxia suggesting hypoventilation. Due to low AHI the patient did not meet the split night criteria for CPAP initiation. The patient's sleep apnea was more seen during REM sleep, which came very late in the night. IMPRESSION: 1. Mild sleep apnea-hypopnea syndrome with moderate increase during REM sleep. Total apnea-hypopnea index 5.8 per hour with a REM apnea-hypopnea index of 21.8 per hour. 2. Nocturnal hypoxia secondary to obstructive sleep apnea and hypoventilation. 3. No clinically significant periodic limb movements of sleep. RECOMMENDATIONS: 1. The patient did not meet the criteria for CPAP initiation. If the patient [facility] [address] [place] [address] POLYSOMNOGRAPHY STUDY Name: ISIDRA NGUYEN ANTHONY [facility] #: [facility] [id number] Admission: 10/05/18 ������������������ Attend Phys: Immanuel Gomez MD Discharge: ������������������ Date of : 67 Report #: [id number] is clinically symptomatic or has comorbid conditions, then consider treating the patient's sleep apnea with either an oral appliance as recommended by the dentist versus a trial of CPAP titration. 2. Weight loss is strongly advised. 3. Avoid SENIOR IT ENGINEER depressants. 4. Cautioned regarding driving until symptoms of sleep apnea have resolved with the above recommendation. ��������������������������������������������� <ELECTRONICALLY SIGNED> ���������������������������������������� By: Immanuel Gomez MD ��������������������������������������������� 10/08/18 1008 1648 1659 Immanuel Gomez MD /nt
== END ==
LOC: SLEEPLAB 08-24 11:57
DX: G47.33 Obstructive sleep apnea (adult) (pediatric) (principal); R09.02 Hypoxemia

== ENCOUNTER → 2018-10-25 | Outpatient (CLI) | payer OTHER | LOC: ULTRA 14:54 | DX: M79.605 Pain in left leg (principal); M79.89 Other specified soft tissue disorders ==

== ENCOUNTER → 2018-11-28 | Outpatient (CLI) | payer OTHER | LOC: PUL 12:07 → RAD 12:07 | DX: J44.9 Chronic obstructive pulmonary disease, unspecified (principal) ==

== ENCOUNTER → 2018-12-04 | Outpatient (CLI) | payer OTHER ==
[2018-12-04 14:06] LABS: BE(vivo) -1.8 mmol/L (-2 to +3); HCO3 21.9 mmol/L (22.0-26.0); PCO2 34.1 mmHg (35.0-45.0); PO2 72.8 mmHg (80.0-100.0); pH 7.425 (7.360-7.450); sO2 95.1 % (92.0-98.0)
== END ==
LOC: PUL 13:29
PROVIDERS: Internal Medicine Pulmonary Disease
DX: R06.02 Shortness of breath (principal)

== ENCOUNTER 2018-12-06 18:36 | Emergency (ER) | payer OTHER ==
[~2018-12-06] VITALS: Ht 157.5 cm; Wt 113.4 kg
[2018-12-06] MEDS ORDERED: KEFLEX500 M1 PO (18:44)
[2018-12-06 19:07] VITALS: BP 131/72
== END 2018-12-06 19:11 | disposition home or self-care (01) ==
LOC: ER 18:36
DX: K03.2 Erosion of teeth (principal); K08.89 Other specified disorders of teeth and supporting structures; F17.210 Nicotine dependence, cigarettes, uncomplicated; I10 Essential (primary) hypertension; I11.0 Hypertensive heart disease with heart failure; I50.9 Heart failure, unspecified; E78.5 Hyperlipidemia, unspecified; E11.9 Type 2 diabetes mellitus without complications; J44.9 Chronic obstructive pulmonary disease, unspecified; E78.00 Pure hypercholesterolemia, unspecified; I25.10 Atherosclerotic heart disease of native coronary artery without angina pectoris; I95.9 Hypotension, unspecified; F32.9 Major depressive disorder, single episode, unspecified; F41.9 Anxiety disorder, unspecified; Z86.73 Personal history of transient ischemic attack (TIA), and cerebral infarction without residual deficits; Z90.49 Acquired absence of other specified parts of digestive tract; Z90.711 Acquired absence of uterus with remaining cervical stump; Z88.0 Allergy status to penicillin

== ENCOUNTER 2019-01-31 06:30 | Outpatient (CLI) | payer OTHER ==
[2019-01-31] VITALS (7 sets, daily range): BP systolic 119–134; BP diastolic 79–877
[~2019-01-31] VITALS: Ht 157.5 cm; Wt 108.9 kg
[2019-01-31] MEDS ORDERED: VALIUM5 MG PO (07:34)
[2019-01-31 08:22] LABS: HEMATOCRIT 34.4 % (37.0-47.0); HEMOGLOBIN 11.4 gm/dL (12.0-15.0); MCH 29.4 pg (26.0-34.0); MCHC 33.2 g/dL (28.0-37.0); MCV 88.7 fL (80.0-100.0); RBC 3.88 mil/uL (4.20-5.00); RDW 14.2 % (10.5-14.5); WBC 11.6 thou/uL (4.0-11.0)
[2019-01-31 08:39] LABS: CALCIUM 8.8 mg/dL (8.5-10.1); CREATININE 0.9 mg/dL (0.6-1.0); POTASSIUM 3.1 mmol/L (3.5-5.1)
--- NOTE | 2019-01-31 13:20 | CATHLAB ---
[facility] [place] [place] [address] INVASIVE PROCEDURE REPORT Name: ISIDRA NGUYEN TESS Room #: REG [facility] [id number] ������������� Admission: 01/31/19 ������������� Attend Phys: Alverto [place] MD Discharge: ��� ������������� ��� Date of : 67 Date of Service: 01/31/19 1320 �� Report #: [id number] �������� ��������������������������������������������[id number] THIS REPORT FOR: //name// APPROVED REPORT Study performed: 01/31/2019 09:40:42 Patient Details Patient Status: In-Patient Room #: The patient is a 53 year-old female Event Personnel Alverto [place] School Bus Driver, Merrill Dunaway RN RN, Lory Freed, Wood Killian RTR Scrub Procedures Performed Art Access - R femoral artery* 64815 Initial Mod Sed Same Phys/QHP Gr5y 298765 75257 Mod Sed Same Phys/QHP Ea 633158 Left Heart Cath w/or w/o Coronaries 1840520 [facility] RUT Place w/wo Plasty Single OM 209328 RUT Place w/wo Plasty Single RAMUS Inter 949012 Hemostasis w/ Mynx Indication Dyspnea, Unstable angina , Chest pain Risk Factors Obesity, Hypercholesterolemia, Coronary Artery DiseaseHypertension, Tobacco History () Previous Procedures/Diagnoses Previous CABGPrevious PCI, The patient presented with acute coronary syndrome, diagnosed with a non-ST elevation MT at [facility]. Cardiac catheterization was performed, recommended medical therapy. However, the patient continues to have unstable symptoms on medical therapy. Procedure Narrative The patient was brought electively to the Cardiac Catheterization Laboratory and was prepped and draped in a sterile manner. The Right Groin^ was infiltrated with 1% Lidocaine subcutaneous anesthesia. A PINNACLE 4FR Sheath #[id number] sheath was inserted into the RFA^. Coronary angiography was performed using coronary diagnostic catheters. The right coronary system was accessed and visualized with a JR 4 catheter. The left coronary system was accessed and visualized with a JL 4 catheter. The left ventricle was accessed and visualized [facility] [address] [place] [address] INVASIVE PROCEDURE REPORT Name: ISIDRA NGUYEN TESS Room #: REG [facility]#: [id number] ������������� Admission: 01/31/19 ������������� Attend Phys: Alverto [place] MD Discharge: ��� ������������� ��� Date of : 67 Date of Service: 01/31/19 1320 �� Report #: [id number] �������� ��������������������������������������������[id number] with a JR 4 catheter. Left ventricular/Aortic Valve gradient assessed via catheter pullback. Pre-demployment femoral angiogram was performed . Closure device was deployed with a 6 Fr Mynx. The patient tolerated the procedure well and there were no complications associated with the procedure. There was no hematoma. Intraoperative Conscious Sedation Sedation start time: 10:00 Case end Time: 10:59 Fentanyl 100 mcg Versed 2 mg Fluoro Time: 14.50 minutes Dose: DAP 54898.00 cGycm2 2930 mGy Contrast Type and Amount: Omnipaque 245 ml Coronary Angiography The patient's coronary anatomy is right dominant. Diagnostic Cath Left Main This is a patent vessel, with no flow-limiting lesions. LAD There is a previously placed stent in the proximal LAD, extending into the first diagonal artery, patent with minimal restenosis. There is a severe occlusion just after the stent. The BRITTON graft is patent with an end to side anastomosis to the mid LAD. Diagonal 1 This vessel divides into a superior and inferior branch. The superior branches filled via proximal LAD. There is a patent SVG with an end to side anastomosis to the inferior branch. Circumflex Supplies to OM vessels. OM1 There is a severe proximal occlusion, 70%. OM2 There is a severe proximal occlusion, 80%. Right Coronary Dominant vessel with 100% occlusion in the midsegment. There is a patent SVG with an end-to-side anastomosis to the PDA. After the anastomosis, there is retrograde filling of the distal RCA and right posterior lateral branches. Left Ventriculography Left Ventriculography was not performed. Ejection Fraction was 55-60% based off patient's Echocardiogram. An LVEDP was measured and there is no gradient across the outflow tract. Hemodynamics The aortic pressure is 127/80 mmHg with a mean of 102 mmHg. The left ventricular pressure is 125/21 mmHg with a mean of mmHg. The [facility] [address] [place] [address] INVASIVE PROCEDURE REPORT Name: ISIDRA NGUYEN TESS Room #: REG CL Meaghan#: [id number] ������������� Admission: 01/31/19 ������������� Attend Phys: Alverto [place] MD Discharge: ��� ������������� ��� Date of : 67 Date of Service: 01/31/19 1320 �� Report #: [id number] �������� ��������������������������������������������[id number] ventricular end diastolic pressure is 31 mmHg. PCI Technique Lesion Percutaneous coronary intervention was performed on the second obtuse marginal branch segment. The lesion stenosis prior to intervention was 80% with ZAK 3 flow. A LAUNCHER 6FR EBU 3.5 #[id number] Guide Catheter was used to engage the ostium. A Luge Wire .014 x 182CM #[id number] Interventional Guidewire was used to cross the lesion. BALLOON DILATION A Balloon catheter Euphora RX 2.0 x12 #[id number] was inserted and inflated up to 8.00atm for 14seconds. STENT DEPLOYMENT A drug-eluting stent RESOLUTE TAMMY RX 2.0 X 26 #[id number] was inserted and inflated up to 10.00atm for 25seconds. Final angiography reveals 0 % stenosis with ZAK 3 flow. PCI Technique Lesion 2 Percutaneous coronary intervention was performed on the first obtuse marginal artery. The lesion stenosis prior to intervention was 70% with ZAK 3 flow. A LAUNCHER 6FR EBU 3.5 #[id number] Guide Catheter was used to engage the ostium. A LAUNCHER 6FR EBU 3.5 #[id number] Interventional Guidewire was used to cross the lesion. Stent Deployment A drug-eluting stent RESOLUTE TAMMY RX 2.0 X 12 #[id number] was inserted and inflated up to 10.00atm for 23seconds. Additional Inflation: 18.00atm for 15seconds. Final angiography reveals 0 % stenosis with ZAK 3 flow. Conclusion 1. Successful insertion of drug-eluting stents into the first and second obtuse marginal arteries. 2. Patent BRITTON graft to the mid LAD. 3. Patent SVG to the first diagonal artery(inferior branch). 4. Patent SVG to the PDA/distal RCA. [facility] [address] [place] [address] INVASIVE PROCEDURE REPORT Name: ISIDRA NGUYEN Room #: REG CL [facility]#: [id number] ������������� Admission: 01/31/19 ������������� Attend Phys: Alverto [place] MD Discharge: ��� ������������� ��� Date of : 67 Date of Service: 01/31/19 1320 �� Report #: [id number] �������� ��������������������������������������������[id number] 5. Recommend dual antiplatelet therapy and aggressive risk factor management. ��������������������������������������������� <ELECTRONICALLY SIGNED> ���������������������������������������� By: Alverto [place] MD ��������������������������������������������� 01/31/190 19 19 Alverto [place] MD /INF
--- NOTE | 2019-01-31 14:12 | NUR ---
REPORTS CALLED TO SILVERIO BENZ. PT TAKEN TO CCU ROOM 209 AT THIS TIME.
--- NOTE | 2019-01-31 19:14 | NUR ---
PT ADMITED FROM PAPER HANDLER. ADMISSION HX AND ASSESSMENT COMPLETED. VSS. RIGHT GROIN INCISION C/D/I. NO HEMATOMA NOTED. RECEIVED PRN PAIN MED WITH PARTIAL RELIEF. WILL CONTINUE TO MONITOR.
[2019-02-01 00:08] VITALS: BP 134/65
[2019-02-01 04:38] LABS: HEMATOCRIT 34.6 % (37.0-47.0); HEMOGLOBIN 11.6 gm/dL (12.0-15.0); MCH 29.7 pg (26.0-34.0); MCHC 33.6 g/dL (28.0-37.0); MCV 88.6 fL (80.0-100.0); RBC 3.91 mil/uL (4.20-5.00); RDW 13.9 % (10.5-14.5); WBC 10.9 thou/uL (4.0-11.0)
[2019-02-01 04:41] LABS: ALBUMIN 2.9 g/dL (3.4-5.0); CREATININE 0.9 mg/dL (0.6-1.0); POTASSIUM 3.5 mmol/L (3.5-5.1); TOTAL BILIRUBIN 0.5 mg/dL (<0.1-1.0)
[2019-02-01 05:08] VITALS: BP 107/69
--- NOTE | 2019-02-01 06:07 | NUR ---
ASSUMED PT CARE AT 1900 WITH NO SIGN OF DISTRESS NOTED. PT IS ALERT ORIENTED. PT IS STABLE FROM COMPOUNDING PHARMACY TECHNICIAN PROCEDURE. RIGHT GROIN SITE IS INTACT. NO BLEEDING OR HEMATOMA NOTICED. FAMILY AT BEDSIDE. SCHEDULED MED ADMINISTERED TO PT. PT TOLERATED PO INTAKE. PAIN MEDS ADMINISTERED REQUESTED BY PATIENT. DENIES ANY FURTHER NEEDS AT THIS TIME. CONTINUE NURSING POC.
[2019-02-01 08:22] VITALS: BP 113/63
[2019-02-01 09:44] VITALS: BP 113/63
--- NOTE | 2019-02-01 10:03 | NUR ---
ASSESSMENT CHARTED. PT ALERT AND ORIENTED. VSS. RECEIVED PRN PAIN MED WITH PARTIAL RELIEF. RIGHT GROIN INCISION C/D/I. NO HEMATOMA NOTED. ORDERS GIVEN TO DISCHARGE PT TO HOME. DISCHARGE INSTRUCTIONS GIVEN TO PT. PT VERBERLIZE UNDERSTANDING.
--- NOTE | 2019-02-03 17:55 | EKG ---
[place] [address] [address] [place] [address] ELECTROCARDIOGRAM REPORT Name: ISIDRA NGUYEN TESS [id number] ������������������ Admission: 01/31/19 ������������������ Attend Phys: Alverto Sparks MD Discharge: 02/01/19 ������������������ Date of : 67 Report #: [id number] ����������������������������������������������������������������� [id number] THIS REPORT FOR: //name// [facility] Test Date: 2019-01-31 Test Time: 07:13:32 Pat Name: ISIDRA NGUYEN Department: Room: Gender: F Staff Software Engineer: Kayli QUIROZ : 1965 Requested By: Alverto Sparks Order Number: [id number] MD: Antony Arteaga Measurements Intervals [place] Rate: 80 P: 31 NC: 214 QRS: -53 QRSD: 125 T: 106 QT: 416 QTc: 480 Interpretive Statements Sinus rhythm Prolonged NC interval Left bundle branch block Compared to ECG 06/18/2018 11:00:15 No significant changes Electronically Signed On 02-03-2019 17:55:30 CDT by Antony Arteaga [email or web address] ��������������������������������������������� <ELECTRONICALLY SIGNED> ���������������������������������������� By: Antony Arteaga MD, [facility] ��������������������������������������������� 02/03/19 1755 2 2 Antony Arteaga MD, [facility] /EPI
--- NOTE | 2019-02-03 17:59 | EKG ---
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: Nelson GALVEZ : 1965 Requested By: Alverto Sparks Order Number: [id number] MD: Antony Arteaga Measurements Intervals [place] Rate: 76 P: 67 WI: 224 QRS: -60 QRSD: 129 T: 110 QT: 411 QTc: 463 Interpretive Statements Sinus rhythm Prolonged [place] interval Left bundle branch block Compared to ECG 06/18/2018 11:00:15 No significant changes Electronically Signed On 02-03-2019 17:59:33 CDT by Antony Arteaga [email or web address] ��������������������������������������������� <ELECTRONICALLY SIGNED> ���������������������������������������� By: Antony Arteaga MD, [facility] ��������������������������������������������� 02/03/19 1759 1124 1124 Antony Arteaga MD, [facility] /EPI
--- NOTE | 2019-02-03 18:10 | EKG ---
[place] [address] [employer] [place] [address] ELECTROCARDIOGRAM REPORT Name: ISIDRA NGUYEN TESS Room #: [facility]P [facility] [id number] ������������������ Admission: 01/31/19 ������������������ Attend Phys: Alverto Sparks MD Discharge: 02/01/19 ������������������ Date of : 67 Report #: [id number] ����������������������������������������������������������������� [id number] THIS REPORT FOR: //name// [facility] Test Date: 2019-02-01 Test Time: 07:04:50 Pat Name: ISIDRA NGUYEN Department: Room: 209 P Gender: F Road Monkey: ROSMERY : 1965 Requested By: Alverto Sparks Order Number: [id number] MD: Antony Arteaga Measurements Intervals [place] Rate: 80 P: 53 OK: 211 QRS: -57 QRSD: 125 T: 109 QT: 386 QTc: 446 Interpretive Statements Sinus rhythm Prolonged [place] interval Left bundle branch block Compared to ECG 06/18/2018 11:00:15 No significant changes Electronically Signed On 02-03-2019 18:10:31 CDT by Antony Arteaga [email or web address] ��������������������������������������������� <ELECTRONICALLY SIGNED> ���������������������������������������� By: Antony Arteaga MD, [facility] ��������������������������������������������� 02/03/19 181 3 3 Antony Arteaga MD, [facility] /EPI
--- NOTE | 2019-02-04 08:20 | D ---
[facility] [address] DISCHARGE SUMMARY Name: ISIDRA NGUYEN Room #: DEP WILD [place]#: [id number] Admission: 01/31/19 ������������������ Attend Phys: Alverto Sparks MD Discharge: 02/01/19 ������������������ Date of : 67 Report #: [id number] THIS REPORT FOR: //name// CC: FAM unknown Alverto Sparks DATE OF SERVICE: 02/01/2019 FINAL DIAGNOSES: 1. Unstable angina, status post coronary intervention. 2. Previous history of coronary artery bypass grafting. 3. Hypertension. 4. Tobacco use. 5. Hypercholesterolemia. 6. Edema. 7. Cerebrovascular accident. HOSPITAL COURSE: Please see the original H and P for full details. The patient recently presented with unstable angina to [facility], found to have an elevated troponin level. Cardiac catheterization was performed, found to have severe stenosis of obtuse marginal arteries, felt to be small in caliber and medical therapy was recommended. She presented to the office complaining of increasing unstable angina symptoms. She presented for elective cardiac catheterization. There is a patent BRITTON graft to the LAD. There is a patent vein graft to the inferior branch of the first diagonal artery. The superior branch is supplied by adequate blood flow from the proximal LAD stent into the first diagonal artery. There is a patent SVG to the PDA, with retrograde filling of the distal RCA and its branches. OM1 and OM2 had severe occlusions proximally. Both underwent insertion of drug-eluting stents. She has remained stable overnight and will be discharged home. [facility], Proton[facility], inhalers, lisinopril 40 mg daily, aspirin 81 mg daily, Plavix 75 mg daily, Imdur 30 mg daily, Coreg 25 mg twice a day, furosemide 40 mg daily with other medications. She will follow up in the office in a few weeks. ��������������������������������������������� <ELECTRONICALLY SIGNED> ���������������������������������������� By: Alverto Sparks MD ��������������������������������������������� 02/04/19 0820 0834 0848 Alverto Sparks MD /nt
== END 2019-02-01 09:53 | disposition home or self-care (01) ==
LOC: CATH 06:30 → 2N 14:04 → ENTRNSPT 02-01 09:45 → EDTRNSPTSTS 02-01 09:47 → CATH 02-01 09:53
PROVIDERS: Internal Medicine Cardiovascular Disease
DX: I25.110 Atherosclerotic heart disease of native coronary artery with unstable angina pectoris (principal); I11.0 Hypertensive heart disease with heart failure; I50.9 Heart failure, unspecified; I25.2 Old myocardial infarction; E11.9 Type 2 diabetes mellitus without complications; E78.00 Pure hypercholesterolemia, unspecified; E66.09 Other obesity due to excess calories; E78.5 Hyperlipidemia, unspecified; K21.9 Gastro-esophageal reflux disease without esophagitis; J44.9 Chronic obstructive pulmonary disease, unspecified; I73.9 Peripheral vascular disease, unspecified; F17.210 Nicotine dependence, cigarettes, uncomplicated; F32.9 Major depressive disorder, single episode, unspecified; F41.9 Anxiety disorder, unspecified; Z87.440 Personal history of urinary (tract) infections; Z87.01 Personal history of pneumonia (recurrent); Z86.73 Personal history of transient ischemic attack (TIA), and cerebral infarction without residual deficits; Z90.711 Acquired absence of uterus with remaining cervical stump; Z90.49 Acquired absence of other specified parts of digestive tract; Z98.890 Other specified postprocedural states; Z79.899 Other long term (current) drug therapy; Z88.0 Allergy status to penicillin; Z79.82 Long term (current) use of aspirin
CPT/HCPCS: 10081; 62110; 62900

== ENCOUNTER → 2019-08-26 | Outpatient (CLI) | payer OTHER | LOC: SJCVC 11:02 | DX: I49.1 Atrial premature depolarization (principal); R94.31 Abnormal electrocardiogram [ECG] [EKG]; I25.10 Atherosclerotic heart disease of native coronary artery without angina pectoris; I11.0 Hypertensive heart disease with heart failure; I50.9 Heart failure, unspecified; E78.00 Pure hypercholesterolemia, unspecified; J44.9 Chronic obstructive pulmonary disease, unspecified; I25.2 Old myocardial infarction; F17.200 Nicotine dependence, unspecified, uncomplicated; Z95.1 Presence of aortocoronary bypass graft; Z90.49 Acquired absence of other specified parts of digestive tract; Z79.899 Other long term (current) drug therapy ==

== ENCOUNTER → 2020-11-02 | Outpatient (CLI) | payer OTHER | LOC: SJCVCIMAG 10-08 08:26 | PROVIDERS: ATTEND Internal Medicine Cardiovascular Disease | DX: I08.1 Rheumatic disorders of both mitral and tricuspid valves (principal); I25.10 Atherosclerotic heart disease of native coronary artery without angina pectoris; I10 Essential (primary) hypertension; R07.9 Chest pain, unspecified ==

== ENCOUNTER → 2020-11-09 | Outpatient (CLI) | payer OTHER ==
[~2020-11-09] MED LIST changes: +BUSPIRONE HCL5 MG PO; +DEXILANT60 MG PO; +DULERA 200 MCG/13 GM INH; +DULOXETINE HCL30 MG PO; +PRINIVIL40 MG PO
== END ==
LOC: SJCVCIMAG 08:38
PROVIDERS: ATTEND Internal Medicine Cardiovascular Disease
DX: R06.00 Dyspnea, unspecified (principal); I25.10 Atherosclerotic heart disease of native coronary artery without angina pectoris; R07.89 Other chest pain; R10.9 Unspecified abdominal pain; E78.5 Hyperlipidemia, unspecified; J44.9 Chronic obstructive pulmonary disease, unspecified; E11.9 Type 2 diabetes mellitus without complications; I10 Essential (primary) hypertension; F17.200 Nicotine dependence, unspecified, uncomplicated; Z98.61 Coronary angioplasty status; Z95.1 Presence of aortocoronary bypass graft; Z79.82 Long term (current) use of aspirin; Z79.899 Other long term (current) drug therapy

== ENCOUNTER 2020-11-19 07:44 | Observation (INO) | payer OTHER ==
[2020-11-19] VITALS (11 sets, daily range): BP systolic 128–177; BP diastolic 74–111
[~2020-11-19] VITALS: Ht 160 cm; Wt 103.9 kg
[~2020-11-19 07:44] MED LIST changes: -BUSPIRONE HCL5 MG PO; -DULERA 200 MCG/13 GM INH; -DULOXETINE HCL30 MG PO; -PRINIVIL40 MG PO
[2020-11-19] MEDS ORDERED: DULOXETINE HCL30 MG PO (09:20)
[2020-11-19] MEDS ORDERED: BUSPIRONE HCL5 MG PO (09:20)
[2020-11-19] MEDS ORDERED: DULERA 200 MCG/13 GM INH (09:21)
[2020-11-19 09:51] LABS: HEMOGLOBIN 12.3 gm/dL (12.0-15.0); MCH 29.6 pg (26.0-34.0); MCHC 32.3 g/dL (28.0-37.0); MCV 91.6 fL (80.0-100.0); RBC 4.15 mil/uL (4.20-5.00); RDW 14.5 % (10.5-14.5); WBC 12.6 thou/uL (4.0-11.0)
[2020-11-19 10:00] LABS: CALCIUM 8.5 mg/dL (8.5-10.1); CREATININE 0.9 mg/dL (0.6-1.0); POTASSIUM 3.6 mmol/L (3.5-5.1)
--- NOTE | 2020-11-19 13:10 | CATHLAB ---
[facility] [place] [address] [address] INVASIVE PROCEDURE REPORT Name: ISIDRA NGUYEN Room #: 215-P ADM Ilya M.RGregg#: [id number] Admission: 11/19/20 Attend Phys: Alverto Sparks MD Discharge: Date of : 67 Report #: [id number] THIS REPORT FOR: cc: FAM - Clinic physician unknown FAM - Family physician unknown Alverto Sparks MD ~ APPROVED REPORT Study performed: 11/19/2020 09:17:55 Patient Details Patient Status: Out-Patient Room #: The patient is a 55 year-old female Event Personnel Alverto Sparks Silverware Washer, Eliana Ray RN RN, Telma Parks RTR, SHANNEN Guallpa, Eloisa Tejeda Monitor Procedures Performed Art Access - R femoral artery* Left Heart Cath w/or w/o Coronaries 6035695 [facility] RUT Place w/wo Plasty Single DIAG 517368 11456 Initial Mod Sed Same Phys/QHP Gr5y 140966 34063 Mod Sed Same Phys/QHP Ea 521236 Hemostasis w/ Mynx Indication Dyspnea, Unstable angina , Positive stress test, Chest pain Risk Factors Obesity, Cerebrovascular Disease, HypercholesterolemiaPhysical Activity, Coronary Artery DiseaseHypertension, Tobacco History () Previous Procedures/Diagnoses Previous CABGPrevious CVAPrevious PCI, Previous [place] Procedure Narrative The Right Groin^ was infiltrated with 2% Lidocaine subcutaneous anesthesia. A PINNACLE 6FR Sheath #[id number] sheath was inserted into the RFA^. Coronary angiography was performed using coronary diagnostic catheters. The right coronary system was accessed and visualized with a JR4 catheter. The left coronary system was accessed and visualized with a JL4 catheter. There was no hematoma. [facility] [address] [place] [address] INVASIVE PROCEDURE REPORT Name: ISIDRA NGUYEN TESS Room #: 215-P [facility]#: [id number] Admission: 11/19/20 Attend Phys: Alverto Sparks MD Discharge: Date of : 67 Report #: [id number] Intraoperative Conscious Sedation Sedation start time: 1035 Case end Time: 1155 Fentanyl 150 mcg Versed 2 mg Fluoro Time: 12.10 minutes Dose: DAP 13755.40 cGycm2 3333 mGy Contrast Type and Amount: Omnipaque 180 ml Coronary Angiography The patient's coronary anatomy is right dominant. [place] Artery Percent Stenosis Left Main: % Prox LAD: 80 % Mid/Distal LAD: % Circumflex: % RCA: 100 % Ramus: % Diagnostic Cath LAD There is a patent BRITTON graft with a end-to-side anastomosis to the mid LAD. After the anastomosis, there are no flow-limiting lesions in the north fork LAD segment. Diagonal 1 There is a patent stent in the proximal LAD extending into the proximal first diagonal artery. Diagonal 2 There is a severe occlusion at the distal anastomosis of the SVG to the second diagonal artery. The second diagonal artery is a moderate-sized caliber vessel, supplies several branches in the mid to distal anterior/anterolateral areas. Circumflex There is a mild proximal stenosis, 30%. OM1 There is a patent stent in the proximal segment, with minimal restenosis. OM2 There is a patent stent in the proximal segment, with minimal restenosis. Right Coronary There is a patent SVG with an end-to-side anastomosis to the PDA. There are no flow-limiting lesions, however the SVG is ectatic. After the anastomosis, there is both retrograde and antegrade flow. This also supplies the RPL branches. Left Ventriculography Left Ventriculography was not performed. Ejection Fraction was >55% based off patient's Nuclear Cardiac Stress Test. An LVEDP was measured and there is no gradient across the outflow tract. Hemodynamics The aortic pressure is 173/96 mmHg with a mean of 102 mmHg. The left ventricular pressure is 169/16 mmHg with a mean of mmHg. The left ventricular end diastolic pressure is 29 mmHg. [facility] [address] [place] [address] INVASIVE PROCEDURE REPORT Name: NGUYENISIDRA CHEBANSE Room #: 215-[facility] M.R.#: [id number] Admission: 11/19/20 Attend Phys: Alverto Sparks MD Discharge: Date of : 67 Report #: [id number] PCI Technique Lesion Percutaneous coronary intervention was performed on the Distal anastomosis of the SVG to second diagnonal branch segment. The lesion stenosis prior to intervention was 90% with ZAK 3 flow. A LAUNCHER 6FR AL75 #[id number] Guide Catheter was used to engage the 2ND DIAG ostium. A Luge Wire .014 x 182CM #[id number] Interventional Guidewire was used to cross the lesion. BALLOON DILATION A Balloon catheter Euphora RX 2.25 x 12 #[id number] was inserted and inflated up to 10.00atm for 19seconds. Additional Inflation: 10.00atm for 15seconds. STENT DEPLOYMENT A stent RESOLUTE TAMMY RX 2.5 X 15 #[id number] was inserted and inflated up to 10.00atm for 20seconds. Additional Inflation: 14.00atm for 14seconds. Final angiography reveals 0 % stenosis with ZAK 3 flow. Conclusion 1. Successful insertion of a drug-eluting stent into the distal anastomosis of the SVG to the second diagonal artery. 2. There is a patent BRITTON graft to the mid/distal LAD. 3. There is a patent SVG to the PDA/RPL, the graft is ectatic. 4. There are patent stents in OM1 and OM 2. 5. There is a patent stent in the proximal LAD extending into the first diagonal artery. 6. There is normal LV systolic function. 7. Recommend dual antiplatelet therapy and aggressive risk factor management. <ELECTRONICALLY SIGNED> By: Alverto Sparks MD 11/19/201309 09 09 Alverto Sparks MD /INF
--- NOTE | 2020-11-19 14:34 | EKG ---
[address] [place] [address] ELECTROCARDIOGRAM REPORT Name: ISIDRA NGUYEN Room #: 215-[facility]..#: [id number] Admission: 11/19/20 Attend Phys: Alverto Sparks MD Discharge: Date of : 67 Report #: [id number] [facility] Test Date: 2020-11-19 Test Time: 12:18:10 Pat Name: ISIDRA NGUYEN Department: Room: [facility] Gender: F Cutter In: SAMREEN : 1965 Requested By: Alverto Sparks Order Number: [id number] : Cristian Estrada Measurements Intervals [place] Rate: 62 P: 26 PA: 215 QRS: -52 QRSD: 129 T: 79 QT: 443 QTc: 450 Interpretive Statements Sinus rhythm Prolonged PA interval Left bundle branch block Compared to ECG 02/01/2019 07:04:50 No significant changes Electronically Signed On 11-19-2020 14:34:43 CDT by Cristian Estrada [email or web address] <ELECTRONICALLY SIGNED> By: Cristian Estrada MD, [facility] 11/19/20 1434 1218 17 Cristian Estrada MD, [facility] /EPI
--- NOTE | 2020-11-19 17:52 | NUR ---
PT CARE ASSUMED AT 1210. ASSESSMENTS CHARTED. MEDICATIONS CHARTED. RAC IV. SINUS RHYTHM. SLIGHT LT HEMIPARESIS FROM PREVIOUS CVA. 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 STENT PLACED IN 2ND DIAGONAL ARTERY. HEMOSTASIS 1149, BEDREST UNTIL 1549, COMPLETE.
[2020-11-20] VITALS: BP 138/94
[2020-11-20 03:50] LABS: HEMATOCRIT 44.8 % (37.0-47.0); MCV 90.9 fL (80.0-100.0); RBC 4.93 mil/uL (4.20-5.00); RDW 14.6 % (10.5-14.5); WBC 9.9 thou/uL (4.0-11.0)
[2020-11-20 04:02] LABS: ALBUMIN 3.5 g/dL (3.4-5.0); CALCIUM 9.4 mg/dL (8.5-10.1); CREATININE 0.8 mg/dL (0.6-1.0); POTASSIUM 4.4 mmol/L (3.5-5.1); TOTAL BILIRUBIN 0.4 mg/dL (0.2-1.0); TOTAL PROTEIN 7.7 g/dL (6.4-8.2)
[2020-11-20 04:44] LABS: HEMOGLOBIN 14.8 gm/dL (12.0-15.0)
--- NOTE | 2020-11-20 04:56 | NUR ---
SLEPT MOST OF SHIFT. PAIN MEDICATION GIVEN NEEDED FOR RIGHT GROIN PAIN. UP AD SUKHDEEP TO BATHROOM. MAINTAIN SAFE ENVIRONMENT. WORKING ON GOALS AND PLAN OF CARE FOR NOC. CONTINUE TO ASSES. RIGHT GROIN DSG REMAINS C/D/I, NO HEMOTOMA OR BLEEDING NOTED.
[2020-11-20 05:00] VITALS: BP 166/95
[2020-11-20 07:30] VITALS: BP 188/112
[2020-11-20 07:45] VITALS: BP 188/112
[2020-11-20] MEDS ORDERED: PRINIVIL40 MG PO (07:52)
[2020-11-20 08:38] VITALS: BP 188/112
--- NOTE | 2020-11-20 08:46 | EKG ---
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 11/20/2046 2 2 Antony Arteaga MD, [facility] /EPI
--- NOTE | 2020-11-20 09:43 | NUR ---
PT CARE ASSUMED AT 0700. ASSESSMENTS CHARTED. MEDICATIONS CHARTED. RAC IV. SINUS RHYTHM, BBB. UP AD SUKHDEEP, TOILET. DAY 2; RT GROIN, MYNX CLOSURE; STENT 2ND DIAGONAL. PT DISCHARGED TO HOME. DISCHARGE PAPERWORK SIGNED. TELEMETRY D/C'D. IV D/C'D.
== END 2020-11-20 09:04 | disposition home or self-care (01) ==
LOC: CATH 07:44 → 2N 12:11 → CATH 12:14 → 2N 11-20 09:04
PROVIDERS: ADMIT Internal Medicine Cardiovascular Disease; ATTEND Internal Medicine Cardiovascular Disease
DX: I25.110 Atherosclerotic heart disease of native coronary artery with unstable angina pectoris (principal); E78.00 Pure hypercholesterolemia, unspecified; I10 Essential (primary) hypertension; I63.9 Cerebral infarction, unspecified; E66.9 Obesity, unspecified; E78.5 Hyperlipidemia, unspecified; J44.9 Chronic obstructive pulmonary disease, unspecified; E11.9 Type 2 diabetes mellitus without complications; G47.30 Sleep apnea, unspecified; Z87.891 Personal history of nicotine dependence; Z79.82 Long term (current) use of aspirin; Z79.899 Other long term (current) drug therapy; Z95.1 Presence of aortocoronary bypass graft

== ENCOUNTER → 2021-03-02 | Outpatient (CLI) | payer OTHER ==
[~2021-03-02] MED LIST changes: +BUSPIRONE HCL5 MG PO; +DULERA 200 MCG/13 GM INH; +DULOXETINE HCL30 MG PO; +PRINIVIL40 MG PO
== END ==
LOC: SJCVC 10:41
PROVIDERS: ATTEND Internal Medicine Cardiovascular Disease
DX: R94.31 Abnormal electrocardiogram [ECG] [EKG] (principal); I44.7 Left bundle-branch block, unspecified; I25.10 Atherosclerotic heart disease of native coronary artery without angina pectoris; R07.9 Chest pain, unspecified; I34.0 Nonrheumatic mitral (valve) insufficiency; E78.00 Pure hypercholesterolemia, unspecified; R60.9 Edema, unspecified; I25.2 Old myocardial infarction; I11.0 Hypertensive heart disease with heart failure; I50.9 Heart failure, unspecified; J44.9 Chronic obstructive pulmonary disease, unspecified; E11.9 Type 2 diabetes mellitus without complications; E78.5 Hyperlipidemia, unspecified; G47.33 Obstructive sleep apnea (adult) (pediatric); F17.200 Nicotine dependence, unspecified, uncomplicated; Z95.1 Presence of aortocoronary bypass graft; Z98.890 Other specified postprocedural states; Z95.5 Presence of coronary angioplasty implant and graft; Z88.0 Allergy status to penicillin; Z88.8 Allergy status to other drugs, medicaments and biological substances; Z79.82 Long term (current) use of aspirin; Z79.899 Other long term (current) drug therapy; Z86.73 Personal history of transient ischemic attack (TIA), and cerebral infarction without residual deficits; Z82.49 Family history of ischemic heart disease and other diseases of the circulatory system

== ENCOUNTER 2021-03-11 18:09 | Observation (INO) | payer OTHER ==
[~2021-03-11] VITALS: Ht 157.5 cm; Wt 102.5 kg
[2021-03-11 09:18] VITALS: BP 143/85
[2021-03-11 09:44] LABS: HEMATOCRIT 41.2 % (37.0-47.0); HEMOGLOBIN 13.3 gm/dL (12.0-15.0); MCH 29.7 pg (26.0-34.0); MCHC 32.4 g/dL (28.0-37.0); MCV 91.5 fL (80.0-100.0); RBC 4.5 mil/uL (4.20-5.00); RDW 14.7 % (10.5-14.5); WBC 10.9 thou/uL (4.0-11.0)
[2021-03-11 09:53] LABS: CALCIUM 8.9 mg/dL (8.5-10.1); CREATININE 1.1 mg/dL (0.6-1.0); POTASSIUM 4.1 mmol/L (3.5-5.1)
--- NOTE | 2021-03-11 13:45 | CATHLAB ---
[facility] [address] [address] [address] INVASIVE PROCEDURE REPORT Name: ISIDRA NGUYEN Room #: PRE WILD MSarah.#: [id number] Admission: Attend Phys: Alverto Sparks MD Discharge: Date of : 67 Report #: [id number] THIS REPORT FOR: cc: FAM - Clinic physician unknown FAM - Family physician unknown Alverto Sparks MD ~ APPROVED REPORT Study performed: 03/11/2021 10:14:15 Patient Details Patient Status: Out-Patient Room #: The patient is a 55 year-old female Event Personnel Alverto Sparks Turn Sewer, Kayla Taylor RN RN, Telam Parks RTR, Josh Gardner Ja'net RTR Monitor, Grecia Lopez RTR Monitor Procedures Performed Art Access - R femoral artery* Left Heart Cath Coronaries, Bypass Grafts 6067425 [facility] RUT Place w/wo Plasty Single DIAG 362836 Hemostasis w/ Mynx 08793 Initial Mod Sed Same Phys/QHP Gr5y 551261 92939 Mod Sed Same Phys/QHP Ea 881601 Indication Dyspnea, Unstable angina , Chest pain Risk Factors Obesity, Chronic Lung DiseaseHypercholesterolemiaPhysical Activity, Coronary Artery DiseaseHypertension, Tobacco History () Previous Procedures/Diagnoses Previous CABGPrevious CVAPrevious PCI, Previous [place] Procedure Narrative The Right Groin^ was infiltrated with 1% Lidocaine subcutaneous anesthesia. A PINNACLE 4FR Sheath #[id number] sheath was inserted into the RFA^. Coronary angiography was performed using coronary diagnostic catheters. The right coronary system was accessed and visualized with a JR4 catheter. The left coronary system was accessed and visualized with a JL4 catheter. The left ventricle was accessed and visualized with a JR4 catheter. Closure device was deployed with a Fr MYNX CONTROL 6F/7F L#[id number]. The patient tolerated the procedure [address] [address] INVASIVE PROCEDURE REPORT Name: ISIDRA NGUYEN Room #: PRE [facility]#: [id number] Admission: Attend Phys: Alverto Sparks MD Discharge: Date of : 67 Report #: [id number] well and there were no complications associated with the procedure. There was no hematoma. Intraoperative Conscious Sedation Sedation start time: 11:08 Case end Time: 12:04 Fentanyl 50 mcg Versed 1 mg Dose: DAP 41612.16 cGycm2 2509 mGy Contrast Type and Amount: Visipaque 150 ml Coronary Angiography The patient's coronary anatomy is right dominant. Diagnostic Cath Left Main The left main artery is a large-caliber vessel, patent with no flow-limiting lesions. LAD The LAD is a total occlusion of the proximal segment. There is a patent BRITTON graft with an end-to-side anastomosis to the mid LAD. There are no flow-limiting lesions in the mid/distal LAD segments after the anastomosis. Diagonal 1 There is a severe occlusion in the proximal segment, 80%. Diagonal 2 This is filled via a saphenous vein graft. There is a stent in the distal anastomosis of the SVG to the second diagonal artery. This stented area is patent with minimal restenosis. This vessel supplies several branches as it courses down the mid anterolateral wall. Circumflex There is a moderate stenosis in proximal segment, 40%. OM1 There is a patent stent in the proximal segment, with minimal restenosis. OM2 There is a patent stent in the proximal segment, with minimal restenosis. Right Coronary The RCA is a dominant vessel with a total occlusion in the proximal segment. There is an SVG with an end-to-side anastomosis to the PDA. After the anastomosis, there is both retrograde (supplying the RPL branches) and antegrade blood flow of the PDA. The SVG is ectatic. Left Ventriculography Left Ventriculography was not performed. An LVEDP was measured and there is no gradient across the outflow tract. Hemodynamics [facility] [address] [address] INVASIVE PROCEDURE REPORT Name: WENDYISIDRA LEE Room #: PRE M.R.#: [id number] Admission: Attend Phys: Alverto Sparks MD Discharge: Date of : 67 Report #: [id number] The aortic pressure is 171/99 mmHg with a mean of 128 mmHg. The left ventricular pressure is 132/14 mmHg with a mean of mmHg. The left ventricular end diastolic pressure is 23 mmHg. PCI Technique Lesion Percutaneous coronary intervention was performed on the first diagnonal branch segment. The lesion stenosis prior to intervention was 80% with ZAK 3 flow. A [place]IST[place] 6FR XB 3.5 #447816 Guide Catheter was used to engage the ostium. A Luge Wire .014 x 182CM #[id number] Interventional Guidewire was used to cross the lesion. BALLOON DILATION A Balloon catheter TREK RX 2.25 X 8 was inserted and inflated up to 14.00atm for 23seconds. STENT DEPLOYMENT A drug-eluting stent RESOLUTE RX 2.5 X 8 #[id number] was inserted and inflated up to 12.00atm for 13seconds. Additional Inflation: 12.00atm for 9seconds. Additional Inflation: 18.00atm for 14seconds. Final angiography reveals 0 % stenosis with ZAK 3 flow. Conclusion 1. Successful insertion of a drug-eluting stent into the proximal segment of the first diagonal artery. 2. There is a patent BRITTON graft to the mid/distal LAD segment. 3. There is a patent stent in the distal anastomotic site of the SVG to the second diagonal artery. 4. There are patent stents in the proximal segments of OM1 and OM 2. 5. There is a patent SVG to the PDA. The vein graft is ectatic throughout. 6. Recommend dual antiplatelet therapy and aggressive risk factor management. <ELECTRONICALLY SIGNED> By: Alverto Sparks MD 03/11/21 1345 1345 1345 Alverto Sparks MD /INF
--- NOTE | 2021-03-11 18:43 | NUR ---
PT ADMITTED TO ROOM 206 FROM CV LAB POST STENT, RIGHT GROIN MYNX DRESSING CDI, BP ELEVATED AND C/O BACK PAIN MEDS GIVEN AND PT RESTING QUIETLY IN ROOM, WILL CON'T TO MONITOR PER PPOC.
[2021-03-11 18:45] VITALS: BP 156/107
[2021-03-11 19:33] VITALS: BP 170/111
[2021-03-11 23:43] VITALS: BP 135/79
--- NOTE | 2021-03-12 04:26 | NUR ---
PT RESTING QUIETLY IN ROOM R GROIN REMAINS STABLE WITH DRESSING CDI, BP ELEVATED AT START OF SHIFT AND HYDRALIZINE PO GIVEN AND CAME BACK DOWN TO 135/79, LAB CAME BY AND PT REFUSED WILL CONSIDER LATER THIS MORNING JUST WANTS TO SLEEP NOW. ASSESSMENTS CHARTED WILL CON'T TO MONITOR PER PPOC
[2021-03-12 04:56] VITALS: BP 157/113
[2021-03-12 07:25] VITALS: BP 170/117
[2021-03-12 08:35] LABS: HEMATOCRIT 42.5 % (37.0-47.0); HEMOGLOBIN 13.6 gm/dL (12.0-15.0); MCH 29.2 pg (26.0-34.0); MCHC 31.9 g/dL (28.0-37.0); MCV 91.4 fL (80.0-100.0); RBC 4.65 mil/uL (4.20-5.00); RDW 14.7 % (10.5-14.5); WBC 12.2 thou/uL (4.0-11.0)
[2021-03-12 08:46] LABS: CALCIUM 9.2 mg/dL (8.5-10.1); CREATININE 0.9 mg/dL (0.6-1.0); POTASSIUM 4.1 mmol/L (3.5-5.1)
--- NOTE | 2021-03-12 08:51 | EKG ---
[address] [place] [address] ELECTROCARDIOGRAM REPORT Name: ISIDRA NGUYEN Room #: 206-[facility].R.#: [id number] Admission: 03/11/21 Attend Phys: Alverto Sparks MD Discharge: Date of : 67 Report #: [id number] [facility] Test Date: 2021-03-12 Test Time: 08:27:46 Pat Name: ISIDRA NGUYEN Department: Room: 206 Gender: F Manager Interventional: kane : 1965 Requested By: Alverto Sparks Order Number: [id number] MD: Antony Arteaga Measurements Intervals [place] Rate: 66 P: 17 VA: 187 QRS: -56 QRSD: 120 T: 154 QT: 441 QTc: 463 Interpretive Statements Sinus rhythm LVH with IVCD, LAD and secondary repol abnrm Compared to ECG 11/20/2020 07:13:10 Intraventricular conduction delay now present bundle-branch block no longer present Electronically Signed On 03-12-2021 8:51:27 CDT by Antony Arteaga [email or web address] <ELECTRONICALLY SIGNED> By: Antony Arteaga MD, [facility] 03/12/2151 6 6 Antony Arteaga MD, [facility] /EPI
[2021-03-12] MEDS ORDERED: LASIX 40 MG TAB40 M2 PO (08:52)
[2021-03-12 10:32] VITALS: BP 170/117
--- NOTE | 2021-03-12 10:47 | NUR ---
ASSUMED CARE SHIFT CHANGE. ASSESSMENT CHARTED. MEDS GIVEN. C/O BACK PAIN MANAGED WITH PO PAIN MEDS. O2 SATS WNL RA. GROIN SITE CDI NO HEMATOMA. DC ORDERS. DISCUSSED DC WITH PT, COMMUNICATES UNDERSTANDING. IV REMVOED. TELE REMOVED PT LEFT WITH ALL BELONGINGS.
== END 2021-03-12 10:55 | disposition home or self-care (01) ==
LOC: CATH 18:09 → 2N 18:10
PROVIDERS: Nurse Practitioner; ADMIT Internal Medicine Cardiovascular Disease; ATTEND Internal Medicine Cardiovascular Disease
DX: I25.110 Atherosclerotic heart disease of native coronary artery with unstable angina pectoris (principal); I10 Essential (primary) hypertension; E78.5 Hyperlipidemia, unspecified; E11.9 Type 2 diabetes mellitus without complications; J44.9 Chronic obstructive pulmonary disease, unspecified; G47.33 Obstructive sleep apnea (adult) (pediatric); Z79.82 Long term (current) use of aspirin; Z79.899 Other long term (current) drug therapy; Z79.02 Long term (current) use of antithrombotics/antiplatelets; Z88.0 Allergy status to penicillin; Z88.8 Allergy status to other drugs, medicaments and biological substances; Z90.49 Acquired absence of other specified parts of digestive tract; Z90.710 Acquired absence of both cervix and uterus